=== PATIENT | female | born 1955 | race Caucasian/White ===

== ENCOUNTER → 2016-05-31 | Outpatient (CLI) | payer OTHER ==
--- NOTE | 2016-05-31 09:01 | MR ---
EXAMINATION TYPE: MR knee LT wo con DATE OF EXAM: 05/31/2016 8:09 AM COMPARISON: NONE HISTORY: Left knee pain, unilateral osteoarthritis, cystic lateral meniscus, and cystic medial menisc us all per order. Left knee pain and swelling outer aspect for 2 weeks after twisting injury per hemant ent. TECHNIQUE: Multiplanar, multisequence images of the knee is performed without IV contrast. FINDINGS: MEDIAL MENISCUS: There is medial extrusion of medial meniscus seen on coronal images. Increased signa l in fibers is seen best on coronal image 17, does not definitively extend to articular surface, find ing involves the body and posterior horn. LATERAL MENISCUS: Anterior and posterior horns are intact without tear. CRUCIATE LIGAMENTS: The anterior and posterior cruciate ligaments are intact and unremarkable. COLLATERAL LIGAMENTS: The medial collateral ligament and lateral collateral ligament complex are. Inc reased fluid signal surrounds medial collateral ligament on coronal image 17. EXTENSOR MECHANISM: Visualized quadriceps and patellar tendons are intact. EFFUSION: There is a small suprapatellar joint effusion. POPLITEAL CYST: There is a moderate size popliteal/banuelos cyst measuring 5.4 cm on long axis on sagitt al image 24. Some ill-defined fluid along superior aspect suggests leak. TRICOMPARTMENT SPACES: There is mild to moderate tricompartment joint space loss and mild to minimal spurring. CARTILAGE: There is chondromalacia patella with full-thickness cartilaginous loss along superior ríos llar pole seen best on sagittal image 15 and axial image 15 involving the medial facet. Beginning oss ific changes are felt present on sagittal image 15. Articular cartilage is fairly well maintained in the medial and lateral tibiofemoral compartments with minimal fissuring medially seen. BONE MARROW SIGNAL: No focal abnormal marrow signal is appreciated. OTHER: Increased fluid signal superficial infrapatellar level is noted most pronounced at level of ti bial tuberosity cannot exclude focal contusion at this level. IMPRESSION: 1. Intrasubstance tear body and posterior horn of medial meniscus. 2. Mild to moderate MCL sprain. 3. Background of mild to moderate degenerative change most pronounced patellofemoral compartment with areas of full-thickness chondromalacia patella present. 4. Moderate-sized leaking popliteal cyst. 5. Small suprapatellar joint effusion.
== END | disposition home or self-care (01) ==
LOC: RADMRIMAIN 07:36
PROVIDERS: ATTEND Orthopaedic Surgery
DX: S83.242A Other tear of medial meniscus, current injury, left knee, initial encounter (principal); S83.412A Sprain of medial collateral ligament of left knee, initial encounter; M22.42 Chondromalacia patellae, left knee; M71.22 Synovial cyst of popliteal space [Baker], left knee; M25.462 Effusion, left knee; M25.862 Other specified joint disorders, left knee

== ENCOUNTER → 2016-08-12 | Outpatient (CLI) | payer OTHER ==
[2016-08-12 07:41] LABS: ALT 26 U/L (9-52); AST 23 U/L (14-36); Alkaline Phosphatase 71 U/L (38-126); Anion Gap 10 mmol/L; Basophils # (A) 0.1 k/uL (0-0.2); Basophils % (A) 1 %; Blood Urea Nitrogen 14 mg/dL (7-17); CH 29.7; CHCM 32.2; Calcium 9.4 mg/dL (8.4-10.2); Carbon Dioxide 27 mmol/L (22-30); Chloride 106 mmol/L (98-107); Cholesterol 163 mg/dL (<200); Eosinophils # (A) 0.2 k/uL (0-0.7); Eosinophils % (A) 2 %; Glucose 88 mg/dL (74-99); HCT 43.5 % (34.0-46.0); HDL Cholesterol 106 mg/dL (40-60); HDW 2.28; HGB 14.1 gm/dL (11.4-16.0); Luc # (Auto) 0.24; Luc % (Auto) 3; Lymphocytes # (A) 3.1 k/uL (1.0-4.8); Lymphocytes % (A) 40 %; MCH 29.9 pg (25.0-35.0); MCHC 32.3 g/dL (31.0-37.0); MCV 92.7 fL (80.0-100.0); Mean Platelet Volume 8.3; Monocytes # (A) 0.5 k/uL (0-1.0); Monocytes % (A) 6 %; Neutrophils # (A) 3.7 k/uL (1.3-7.7); Neutrophils % (A) 48 %; Non-African American GFR(MDRD) >60 (>60 ml/min/1.73 sqM); Potassium 4.2 mmol/L (3.5-5.1); RDW 12.4 % (11.5-15.5); Sodium 143 mmol/L (137-145); Total Bilirubin 0.7 mg/dL (0.2-1.3); Total Protein 7.4 g/dL (6.3-8.2); Triglycerides 116 mg/dL (<150); WBC 7.7 k/uL (3.8-10.6); WBC (Perox) 7.88
== END | disposition home or self-care (01) ==
LOC: LABWHC1 06:53
PROVIDERS: ATTEND Physician Assistant
DX: R53.83 Other fatigue (principal)
CPT/HCPCS: 36415; 80053; 80061; 82652; 84439; 84443; 85025

== ENCOUNTER → 2016-08-28 | Outpatient (CLI) | payer OTHER ==
--- NOTE | 2016-08-28 11:04 | WWHP ---
DATE OF SERVICE: 08/28/2016. CHIEF COMPLAINT: Patient is here for her routine gynecologic exam and mammogram. HPI: This is a 60-year-old G4, P0, 2-2 with an LMP of 1983. She is status post [facility] for benign reasons. The patient is without gynecologic complaints. States it has been 5 to 10 years since her last pelvic exam, and about 2 to 3 years since her last mammogram. PAST MEDICAL HISTORY: Lupus, Raynaud's syndrome, elevated cholesterol and osteopenia and circulatory problems in the lower extremities. MEDICATIONS: 1. Simvastatin 20 mg daily. 2. Celebrex 200 mg b.i.d. 3. Plaquenil 1 b.i.d. 4. Vitamin D 5000 units weekly. ALLERGIES: PENICILLIN AND CODEINE. PAST SURGICAL HISTORY: Multiple D&Cs, appendectomy, cholecystectomy, rotator cuff surgery and colonoscopy in 2015 followed by an upper endoscopy in 2015, hiatal hernia repair, section, MARIA GUADALUPE in 1983. Past OB history: Vaginal delivery at 34 weeks and section at 24 weeks. She had placenta Previa and spontaneous rupture of membranes with his that required section. She had 2 spontaneous abortions. Past BIRD TRAPPER history: She had endometriosis which resulted in a hysterectomy in 1983. She used ERT for about 10 years until she was in her 40s. She has no history of STDs. Menarche was at age 9. SOCIAL HISTORY: She quit smoking in 2007. She has about 4 alcoholic drinks per week and denies drug use. She has been since 1991. 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 FAMILY HISTORY: Two aunts had breast cancer. Mother had CHF and renal failure. Mother also has diabetes. Her father and aunts also have diabetes. REVIEW OF SYSTEMS: Weight has been stable. She denies respiratory or cardiac problems. GI: She states she can have occasional bowel urgency and has to get to the bathroom right away. Bowel movements can also be loose at times. PHYSICAL EXAM: Blood pressure 144/70. Height 5 feet 3 inches. Weight 193 pounds. Temperature 98.4, pulse 70. This is a well-developed, well-nourished white female who is alert and oriented x3 in no acute distress. HEENT is within normal limits. NECK: Supple without mass or thyromegaly. CHEST AND LUNGS: Clear to auscultation. HEART: Regular rate and rhythm. Breasts are without mass or discharge. Axillary exam is negative for adenopathy. BACK: Negative for CVA tenderness. ABDOMEN: Soft and there is mild lower abdominal tenderness without rebound tenderness. There are no palpable masses. The patient states her low abdomen has been somewhat tender during the past 4 years. PELVIC EXAM: External genitalia reveals mild atrophy without lesions. Vagina reveals minimal atrophy without lesions. There is no evidence of prolapse. Bimanual exam is minimal generalized pelvic tenderness bilaterally. There are no palpable pelvic masses. Rectovaginal exam is negative for mass or tenderness and is negative for occult blood. EXTREMITIES: Nontender. IMPRESSION: 1. A 60-year-old menopausal female, status post total abdominal hysterectomy for benign reasons. 2. Mild low abdominal and generalized pelvic tenderness on exam. She states she does not really have pain throughout the day but has noticed tenderness for number of years. 3. History of osteopenia. PLAN: 1. Pap smears have been discontinued. 2. Self-breast examination was discussed. 3. Mammogram will be done today. 4. Pelvic ultrasound will be scheduled. 5. Osteoporosis prevention was discussed. She states she had her last bone density test done about 2 years ago. We will plan on repeating this next year. 6. We discussed her mildly elevated blood pressure. I have recommended that she do home blood pressure monitoring and to follow up with her primary care person for any blood pressure elevations. 7. She will return in one year.
--- NOTE | 2016-09-02 08:07 | MM ---
Reason for exam: screening (asymptomatic). Last mammogram was performed 6 years and 6 months ago. History: Patient is postmenopausal. Family history of breast cancer in paternal aunt and breast cancer in maternal aunt. Took hormonal contraceptives for 16 years beginning at age 10. Took estrogen for 8 years. Took progesterone for 8 years. Physical Findings: A clinical breast exam by your physician is recommended on an annual basis and results should be correlated with mammographic findings. MG 3D Screening Mammo W/Cad Bilateral CC and MLO view(s) were taken. Prior study comparison: February 16, 2010, bilateral diagnostic digital mammog. January 15, 2008, bilateral digital screening mammogram. There are scattered fibroglandular densities. No significant changes when compared with prior studies. ASSESSMENT: Negative, BI-RAD 1 RECOMMENDATION: Routine screening mammogram of both breasts in 1 year.
== END ==
LOC: WWCWWP 07:54
PROVIDERS: ATTEND Obstetrics & Gynecology
DX: Z12.31 Encounter for screening mammogram for malignant neoplasm of breast (principal)
CPT/HCPCS: 77063; G0202

== ENCOUNTER → 2016-09-12 | Outpatient (CLI) | payer OTHER ==
--- NOTE | 2016-09-12 09:00 | US ---
EXAMINATION TYPE: US pelvis complete transvag DATE OF EXAM: 09/12/2016 7:15 AM COMPARISON: CT 2009 CLINICAL HISTORY: 60-year-old female R68.89 Abnormal Pelvic Exam,R10. Pelvic tenderness. Partial hysterectomy 1983 TECHNIQUE: Possible transabdominal sonographic images of the pelvis were obtained. Transvaginal scan musa was medically necessary to better evaluate the anatomy. Date of LMP: partial hysterectomy 1983 Findings: Uterus: surgically absent. Neither ovary is visualized. Within the adnexa, peristalsing bowel an bowel gas is seen. No pelvic free fluid. IMPRESSION: Prominent bowel gas. The ovaries are obscured. No pelvic free fluid. Status post hysterectomy.
== END | disposition home or self-care (01) ==
LOC: RADUSWWP 06:48
PROVIDERS: ATTEND Obstetrics & Gynecology
DX: R10.2 Pelvic and perineal pain (principal); R68.89 Other general symptoms and signs; Z90.710 Acquired absence of both cervix and uterus
CPT/HCPCS: 76830; 76856

== ENCOUNTER → 2017-03-14 | Outpatient (CLI) | payer OTHER ==
[2017-03-14 07:35] LABS: Basophils # (A) 0.1 k/uL (0-0.2); Basophils % (A) 1 %; CHCM 33.1; Eosinophils # (A) 0.1 k/uL (0-0.7); Eosinophils % (A) 1 %; HCT 41.6 % (34.0-46.0); HDW 2.74; HGB 13.3 gm/dL (11.4-16.0); Luc % (Auto) 3; Lymphocytes # (A) 4.4 k/uL (1.0-4.8); Lymphocytes % (A) 43 %; MCH 29.1 pg (25.0-35.0); MCHC 31.9 g/dL (31.0-37.0); MCV 90.9 fL (80.0-100.0); Mean Platelet Volume 8.4; Monocytes # (A) 0.6 k/uL (0-1.0); Monocytes % (A) 6 %; Neutrophils # (A) 4.6 k/uL (1.3-7.7); Neutrophils % (A) 46 %; RBC 4.58 m/uL (3.80-5.40); WBC 10.1 k/uL (3.8-10.6); WBC (Perox) 10.34
[2017-03-14 07:56] LABS: ALT 35 U/L (9-52); AST 22 U/L (14-36); Alkaline Phosphatase 67 U/L (38-126); Anion Gap 8 mmol/L; Blood Urea Nitrogen 14 mg/dL (7-17); Calcium 9.6 mg/dL (8.4-10.2); Carbon Dioxide 29 mmol/L (22-30); Chloride 103 mmol/L (98-107); Cholesterol 139 mg/dL (<200); Glucose 92 mg/dL (74-99); HDL Cholesterol 91 mg/dL (40-60); Non-African American GFR(MDRD) >60 (>60 ml/min/1.73 sqM); Potassium 4.3 mmol/L (3.5-5.1); Sodium 140 mmol/L (137-145); Total Bilirubin 0.3 mg/dL (0.2-1.3); Total Protein 6.7 g/dL (6.3-8.2)
== END | disposition home or self-care (01) ==
LOC: LABWHC1 06:48
PROVIDERS: ATTEND Physician Assistant
DX: E66.9 Obesity, unspecified (principal); E78.3 Hyperchylomicronemia; M32.8 Other forms of systemic lupus erythematosus
CPT/HCPCS: 36415; 80053; 80061; 84443; 85025

== ENCOUNTER 2017-07-30 15:47 | Observation (INO) | payer OTHER ==
[2017-07-30] MEDS ORDERED: DIAZEPAM 5 MG/ML 2 ML INJ IVP STA (16:09)
[2017-07-30] MEDS ORDERED: MORPHINE SULFATE 4MG/4ML SYRG IVP STA (16:09)
[2017-07-30] MEDS ORDERED: RX INFO: IV CONTRAST WAS GIVEN 1 EACH MISC MISCELLANE PRN (16:09)
--- NOTE | 2017-07-30 16:24 | ED ---
General Adult HPI - General Chief complaint: Chest Pain Stated complaint: Chest & shoulder pain Time Seen by Provider: 07/30/17 15:54 Source: patient Mode of arrival: wheelchair Limitations: no limitations - History of Present Illness Initial comments: This is a 61-year-old female who presents emergency department for sudden onset of left-sided neck pain, shoulder and arm pain, and scapular pain. She states that she was out eating lunch when she suddenly developed the symptoms. She states that she does not have any chest pain however the pain is constant. It is unrelieved with any change in position. Nothing seems to make it worse however. 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 She states that she was at lunch when the pain started. She has had pulled muscles before and states that this feels different. She denies any visual changes however does admit to a mild headache. No abdominal pain or nausea. No syncope or lightheadedness. She was concerned that she was having a heart attacks so she presented to the emergency department. - Related Data Home Medications Medication Instructions Recorded Confirmed Celecoxib [CeleBREX] 200 mg PO BID 09/13/15 07/30/17 Ergocalciferol [Vitamin D2] 50,000 unit PO MORRISON 09/13/15 07/30/17 Hydroxychloroquine Sulfate 200 mg PO BID 09/13/15 07/30/17 [Plaquenil] Simvastatin [Zocor] 20 mg PO HS 09/13/15 07/30/17 Hydrochlorothiazide [Hydrodiuril] 25 mg PO DAILY 07/30/17 07/30/17 Allergies Allergy/AdvReac Type Severity Reaction Status Date / Time Penicillins Allergy Rash/Hives Verified 07/30/17 16:44 codeine AdvReac Nausea & Verified 07/30/17 16:44 Vomiting Influenza Virus Vaccines AdvReac Rash/Hives Verified 07/30/17 16:44 Review of Systems ROS Statement: Those systems with pertinent positive or pertinent negative responses have been documented in the HPI. ROS Other: All systems not noted in ROS Statement are negative. Past Medical History Past Medical History: COPD, GERD/Reflux, Hyperlipidemia, Hypertension, Osteoarthritis (OA) Additional Past Medical History / Comment(s): DYSPHAGIA WITH PAIN. , LUPUS, SJOGREN'S, FREQUENT DIARRHEA., BRUISES FROM IV ATTEMPTS 10/31/15- VERY DIFFICULT IV START. History of Any Multi-Drug Resistant Organisms: None Reported Past Surgical History: Appendectomy, Cholecystectomy, Hysterectomy, Orthopedic Surgery Additional Past Surgical History / Comment(s): shoulder surg., tanesha fundoplasty, EGD 10/31/15. Past Anesthesia/Blood Transfusion Reactions: No Reported Reaction Past Psychological History: No Psychological Hx Reported Smoking Status: Former smoker Past Alcohol Use History: Rare Past Drug Use History: None Reported - Past Family History Mother Family Medical History: Cancer General Exam - General Exam Comments Initial Comments: Constitutional: Awake alert Appears comfortable Head: Normocephalic atraumatic Eyes: no conjunctival injection No scleral icterus EOMI, pupils are 3 mm reactive bilaterally Neck: No JVD Supple, no midline tenderness however there is tenderness over the left trapezius Heart: Regular rate rhythm normal S1-S2 no murmurs Lungs: Clear to auscultation bilaterally No wheezing No rales Abdomen: Soft nondistended nontender Extremities: Non edematous DP pulses intact Radial pulses intact bilateral and feel the same Neuro: A&Ox3 No focal neurologic deficits Psych: Appropriate mood and affect Limitations: no limitations Course Vital Signs 07/30/17 07/30/17 07/30/17 15:50 16:38 17:12 Temperature 97.0 F L Pulse Rate 89 79 83 Respiratory 18 18 18 Rate Blood Pressure 151/80 156/74 162/72 O2 Sat by Pulse 99 99 98 Oximetry 07/30/17 07/30/17 17:38 17:48 Temperature Pulse Rate 88 87 Respiratory 18 18 Rate Blood Pressure 138/60 137/63 O2 Sat by Pulse 98 98 Oximetry EKG Findings - EKG Comments: EKG Findings:: EKG showing normal sinus rhythm with rate of 89. No abnormal ST segment changes or T-wave inversions. QTC is 479. Other intervals normal. No ectopy Medical Decision Making - Medical Decision Making Is a 61-year-old female presents emergency department mostly for left-sided neck , shoulder, and scapular pain. She did develop some chest pain while emergency department. She was given multiple pain medications including morphine and Valium without complete resolution of her left sided neck pain. The nitroglycerin that she was given did take away her chest discomfort however. EKG was normal. Troponin negative. CTA of the chest abdomen and pelvis did not show any evidence for aortic dissection. The patient does have some risk factors for CAD needs further workup by a coating technician. She will be started on heparin and admitted to the hospital. Rishabh with Dr. Nelson's group accepted the admission. - Lab Data Result diagrams: 07/30/17 14:30 07/30/17 14:30 Lab Results 07/30/17 07/30/17 07/30/17 Range/Units 14:30 14:30 14:30 WBC 10.0 (3.8-10.6) k/uL RBC 4.55 (3.80-5.40) m/uL Hgb 13.2 (11.4-16.0) gm/dL Hct 39.1 (34.0-46.0) % MCV 86.1 (80.0-100.0) fL MCH 28.9 (25.0-35.0) pg MCHC 33.6 (31.0-37.0) g/dL RDW 13.3 (11.5-15.5) % Plt Count 214 (150-450) k/uL Neutrophils % 53 % Lymphocytes % 35 % Monocytes % 7 % Eosinophils % 2 % Basophils % 1 % Neutrophils # 5.3 (1.3-7.7) k/uL Lymphocytes # 3.5 (1.0-4.8) k/uL Monocytes # 0.7 (0-1.0) k/uL Eosinophils # 0.2 (0-0.7) k/uL Basophils # 0.1 (0-0.2) k/uL PT (9.0-12.0) sec INR (<1.2) APTT (22.0-30.0) sec Sodium 140 (137-145) mmol/L Potassium 4.5 (3.5-5.1) mmol/L Chloride 101 (98-107) mmol/L Carbon Dioxide 28 (22-30) mmol/L Anion Gap 11 mmol/L BUN 18 H (7-17) mg/dL Creatinine 0.70 (0.52-1.04) mg/dL Est GFR (CKD-EPI)AfAm >90 (>60 ml/min/1.73 sqM) Est GFR (CKD-EPI)NonAf >90 (>60 ml/min/1.73 sqM) Glucose 88 (74-99) mg/dL Calcium 9.9 (8.4-10.2) mg/dL Total Bilirubin 0.7 (0.2-1.3) mg/dL AST 39 H (14-36) U/L ALT 23 (9-52) U/L Alkaline Phosphatase 68 (38-126) U/L CK-MB (CK-2) 0.6 (0.0-2.4) ng/mL Troponin I <0.012 (0.000-0.034) ng/mL Total Protein 7.3 (6.3-8.2) g/dL Albumin 4.4 (3.5-5.0) g/dL 07/30/17 Range/Units 14:30 WBC (3.8-10.6) k/uL RBC (3.80-5.40) m/uL Hgb (11.4-16.0) gm/dL Hct (34.0-46.0) % MCV (80.0-100.0) fL MCH (25.0-35.0) pg MCHC (31.0-37.0) g/dL RDW (11.5-15.5) % Plt Count (150-450) k/uL Neutrophils % % Lymphocytes % % Monocytes % % Eosinophils % % Basophils % % Neutrophils # (1.3-7.7) k/uL Lymphocytes # (1.0-4.8) k/uL Monocytes # (0-1.0) k/uL Eosinophils # (0-0.7) k/uL Basophils # (0-0.2) k/uL PT 10.0 (9.0-12.0) sec INR 1.0 (<1.2) APTT 22.9 (22.0-30.0) sec Sodium (137-145) mmol/L Potassium (3.5-5.1) mmol/L Chloride (98-107) mmol/L Carbon Dioxide (22-30) mmol/L Anion Gap mmol/L BUN (7-17) mg/dL Creatinine (0.52-1.04) mg/dL Est GFR (CKD-EPI)AfAm (>60 ml/min/1.73 sqM) Est GFR (CKD-EPI)NonAf (>60 ml/min/1.73 sqM) Glucose (74-99) mg/dL Calcium (8.4-10.2) mg/dL Total Bilirubin (0.2-1.3) mg/dL AST (14-36) U/L ALT (9-52) U/L Alkaline Phosphatase (38-126) U/L CK-MB (CK-2) (0.0-2.4) ng/mL Troponin I (0.000-0.034) ng/mL Total Protein (6.3-8.2) g/dL Albumin (3.5-5.0) g/dL Disposition Clinical Impression: Unstable angina Disposition: ADMITTED IP TO THIS [facility] Condition: Stable
[2017-07-30 17:13] LABS: Basophils # (A) 0.1 k/uL (0-0.2); Basophils % (A) 1 %; Eosinophils # (A) 0.2 k/uL (0-0.7); Eosinophils % (A) 2 %; HCT 39.1 % (34.0-46.0); HGB 13.2 gm/dL (11.4-16.0); Lymphocytes # (A) 3.5 k/uL (1.0-4.8); Lymphocytes % (A) 35 %; MCH 28.9 pg (25.0-35.0); MCHC 33.6 g/dL (31.0-37.0); MCV 86.1 fL (80.0-100.0); Mean Platelet Volume 8.9; Monocytes # (A) 0.7 k/uL (0-1.0); Monocytes % (A) 7 %; Neutrophils # (A) 5.3 k/uL (1.3-7.7); Neutrophils % (A) 53 %; Platelet Count 214 k/uL (150-450); RBC 4.55 m/uL (3.80-5.40); RDW 13.3 % (11.5-15.5)
[2017-07-30 17:21] LABS: Partial Thromboplastin Time 22.9 sec (22.0-30.0)
[2017-07-30 17:22] LABS: ALT 23 U/L (9-52); Albumin 4.4 g/dL (3.5-5.0); Alkaline Phosphatase 68 U/L (38-126); Anion Gap 11 mmol/L; Calcium 9.9 mg/dL (8.4-10.2); Carbon Dioxide 28 mmol/L (22-30); Chloride 101 mmol/L (98-107); Glucose 88 mg/dL (74-99); Sodium 140 mmol/L (137-145); Total Bilirubin 0.7 mg/dL (0.2-1.3); Total Protein 7.3 g/dL (6.3-8.2)
[2017-07-30 17:26] LABS: AST 39 U/L (14-36); Blood Urea Nitrogen 18 mg/dL (7-17); Potassium 4.5 mmol/L (3.5-5.1)
[2017-07-30] MEDS ORDERED: NITROGLYCERIN SL TABS 0.4 MG TAB SUBLINGUAL STA (17:34)
[2017-07-30 17:45] LABS: Creatine Kinase MB 0.6 ng/mL (0.0-2.4); Troponin I <0.012 ng/mL (0.000-0.034)
--- NOTE | 2017-07-30 17:47 | CT ---
EXAMINATION TYPE: CT angio thoracic/abd aorta without and with contrast and with 3-D Reconstruction r endering DATE OF EXAM: 07/30/2017 COMPARISON: CT 10/27/2009 HISTORY: Neck, Shoulder, Back Pain CT DLP: 1600.9 mGycm. Automated Exposure Control for Dose Reduction was Utilized. CONTRAST: CT scan of the thorax, abdomen and pelvis is performed with IV Contrast, patient injected w ith 100ml mL of Isovue 370. 3-D reconstructions. FINDINGS: AIRWAYS AND LUNGS: The airways and lungs are clear. Moderate emphysematous changes are noted diffusel y, greater on the right. PLEURAL SPACES: Negative. SOFT TISSUES: Precontrast imaging shows coronary calcifications and atherosclerotic nonaneurysmal ca lcifications within the thoracic aorta and upper abdominal aorta. No cardiomegaly. Pericardial space is negative. No greater than 1 cm hilar or mediastinal lymph nodes. Postcontrast imaging of the chest abdomen and pelvis is negative for acute aortic process. The pulmon reid arterial system is widely patent. Origins of the great vessels at the aortic arch are widely ríos nt. The aorto iliac system is widely patent. The mesenteric and renal arteries are widely patent. LIVER/GB: No significant abnormality is appreciated. PANCREAS: No significant abnormality is seen. SPLEEN: No significant abnormality is seen. ADRENALS: No significant abnormality is seen. KIDNEYS: No significant abnormality is seen. BOWEL: No significant abnormality is seen. GENITAL ORGANS: No gross abnormality seen. LYMPH NODES: No greater than 1cm abdominal or pelvic lymph nodes are appreciated. OSSEOUS STRUCTURES: No significant abnormality is seen. OTHER: No significant additional abnormality is seen. IMPRESSION: NO ACUTE PROCESS, CHEST ABDOMEN PELVIS CT/CTA WITHOUT AND WITH CONTRAST AND WITH 3-D RECONSTRUCTION R ENDERINGS.
[2017-07-30] MEDS ORDERED: ASPIRIN 81 MG PO STA (17:51)
[2017-07-30] MEDS ORDERED: KETOROLAC 30 MG/ML 1 ML VIAL IVP STA (17:51)
--- NOTE | 2017-07-30 17:55 | XR ---
EXAMINATION: XR chest 2V DATE AND TIME: 07/30/2017 5:31 PM ORDERING PROVIDER: Mian Lombardi DO CLINICAL INDICATION: Neck/Shoulder/Back Pain TECHNIQUE: AP and lateral COMPARISON: 10/27/2009 DESCRIPTION: The overlying soft tissues are prominent. There is a fine reticular pattern of increased attenuation throughout the lung symmetrically which mi ldly silhouettes of the pulmonary vasculature. The findings are consistent with mild interstitial pha se pulmonary edema versus chronic interstitial lung change. Pleural spaces are negative. Bones and soft tissues are negative for acute findings. IMPRESSION: Suspect mild interstitial phase pulmonary edema, as discussed.
[2017-07-30] MEDS ORDERED: NITROGLYCERIN SL TABS 0.4 MG TAB SUBLINGUAL PRN (18:20)
[2017-07-30] MEDS ORDERED: HEPARIN SODIUM,PORCINE 5,000 UNIT/ML 1 ML VIAL IV ONE (18:20)
[2017-07-30] MEDS ORDERED: HEPARIN SOD,PORK IN 0.45% NACL 25,000 UNIT in 0.45% NACL 1 500ML.BAG IV SCH (18:30)
[2017-07-30 19:57] VITALS: RESP 16
[2017-07-30] MEDS ORDERED: CYCLOBENZAPRINE 10 MG TAB PO PRN (20:04)
[2017-07-30] MEDS: HYDROXYCHLOROQUINE SULFATE 200 MG TAB PO SCH (20:35)
[2017-07-30] MEDS: MELOXICAM 7.5 MG TAB PO SCH (20:35)
[2017-07-30] MEDS ORDERED: ATORVASTATIN 10 MG TAB PO SCH (21:00)
[2017-07-30 21:17] LABS: Creatine Kinase 84 U/L (30-135)
[2017-07-30 21:30] LABS: Creatine Kinase MB 0.5 ng/mL (0.0-2.4); Troponin I <0.012 ng/mL (0.000-0.034)
[2017-07-30] MEDS ORDERED: KETOROLAC 30 MG/ML 1 ML VIAL IVP SCH (21:30)
[2017-07-30] MEDS ORDERED: traMADol 50 MG TAB PO SCH (22:00)
[2017-07-31] MEDS: traMADol 50 MG TAB PO PRN ×2 (01:46→06:58)
[2017-07-31] MEDS: KETOROLAC 30 MG/ML 1 ML VIAL IVP PRN ×2 (03:19→10:50)
[2017-07-31 03:53] LABS: Cholesterol 162 mg/dL (<200); HDL Cholesterol 105 mg/dL (40-60); LDL Cholesterol,Calculated 47 mg/dL (0-99); Triglycerides 49 mg/dL (<150)
[2017-07-31] MEDS ORDERED: HEPARIN SODIUM,PORCINE 5,000 UNIT/ML 1 ML VIAL IV PRN (03:59)
[2017-07-31 04:00] LABS: Creatine Kinase 79 U/L (30-135)
[2017-07-31 04:14] LABS: Creatine Kinase MB 0.3 ng/mL (0.0-2.4)
[2017-07-31 04:43] LABS: Troponin I <0.012 ng/mL (0.000-0.034)
[2017-07-31] MEDS ORDERED: HYDROCHLOROTHIAZIDE 25 MG TAB PO SCH (09:00)
[2017-07-31] MEDS ORDERED: ASPIRIN 325 MG TAB PO SCH (09:00)
[2017-07-31] MEDS ORDERED: DIAZEPAM 5 MG TAB PO STA (09:07)
[2017-07-31] MEDS: MELOXICAM 7.5 MG TAB PO SCH (09:18)
[2017-07-31] MEDS: HYDROXYCHLOROQUINE SULFATE 200 MG TAB PO SCH (09:19)
--- NOTE | 2017-07-31 09:24 | P.CRDCN ---
History of Present Illness History of present illness: Patient interviewed and examined. Please see full dictation. This is musculoskeletal pain reproducible with pressure and quite exquisite severe. Continue hydrochlorothiazide continue aspirin and simvastatin patient should go home today. Outpatient follow-up in 2 weeks Past Medical History Past Medical History: COPD, GERD/Reflux, Hyperlipidemia, Osteoarthritis (OA) Additional Past Medical History / Comment(s): DYSPHAGIA WITH PAIN. , LUPUS, SJOGREN'S, raynauldsFREQUENT DIARRHEA., BRUISES easilyFROM IV ATTEMPTS 10/31/15- VERY DIFFICULT IV START.bronchitis, past gerd none since hiatal hernia sx History of Any Multi-Drug Resistant Organisms: None Reported Past Surgical History: Appendectomy, Section, Cholecystectomy, Hysterectomy, Orthopedic Surgery, Tubal Ligation Additional Past Surgical History / Comment(s): t rotator cuff sx, tanesha fundoplasty, EGD 10/31/15.d&c's, colonoscopy/polyps bening, nasal polyp removed - benign, nodule on vocal cord. Past Anesthesia/Blood Transfusion Reactions: Postoperative Nausea & Vomiting ( PONV) Smoking Status: Former smoker - Past Family History Mother Family Medical History: Cancer Father Additional Family Medical History / Comment(s): - hx of parkinsons Medications and Allergies Home Medications Medication Instructions Recorded Confirmed Type Celecoxib [CeleBREX] 200 mg PO BID 09/13/15 07/30/17 History Ergocalciferol [Vitamin D2] 50,000 unit PO MORRISON 09/13/15 07/30/17 History Hydroxychloroquine Sulfate 200 mg PO BID 09/13/15 07/30/17 History [Plaquenil] Simvastatin [Zocor] 20 mg PO HS 09/13/15 07/30/17 History Cyclobenzaprine [Flexeril] 10 mg PO TID 07/30/17 07/30/17 History Hydrochlorothiazide [Hydrodiuril] 25 mg PO DAILY 07/30/17 07/30/17 History Allergies Allergy/AdvReac Type Severity Reaction Status Date / Time Penicillins Allergy Rash/Hives Verified 07/30/17 16:44 codeine AdvReac Nausea & Verified 07/30/17 16:44 Vomiting Influenza Virus Vaccines AdvReac Rash/Hives Verified 07/30/17 16:44 pneumococcal vaccine AdvReac Unknown Verified 07/30/17 19:15 Physical Exam Vitals: Vital Signs Temp Pulse Pulse Resp BP BP Pulse Ox 07/31/17 07:26 97.7 F 70 16 102/57 96 07/31/17 03:29 65 16 07/31/17 03:25 97.5 F L 65 16 127/63 97 07/31/17 00:00 63 16 07/30/17 23:33 97.9 F 73 16 128/60 98 07/30/17 20:00 16 07/30/17 19:56 97.6 F 82 16 142/68 99 07/30/17 19:00 98.3 F 84 14 175/74 99 07/30/17 17:48 87 18 137/63 98 07/30/17 17:38 88 18 138/60 98 07/30/17 17:12 83 18 162/72 98 07/30/17 16:38 79 18 156/74 99 07/30/17 15:50 97.0 F L 89 18 151/80 99 Intake and Output 07/30/17 07/31/17 07/31/17 22:59 06:59 14:59 Intake Total 190.077 Balance 190.077 Intake: Intake, IV Titration 190.077 Amount Heparin Sod,Pork in 0.45% 190.077 NaCl 25,000 unit In 0.45 % NaCl 1 500ml.bag @ 12 UNITS/KG/HR 17.96 mls/hr IV .Q24H [facility] Rx#: [id number] Other: # Voids 1 Weight 74.843 kg Results 07/30/17 14:30 07/30/17 14:30 Cardiac Enzymes 07/30/17 07/30/17 07/30/17 Range/Units 14:30 14:30 20:53 AST 39 H (14-36) U/L CK-MB (CK-2) 0.6 0.5 (0.0-2.4) ng/mL Troponin I <0.012 <0.012 (0.000-0.034) ng/mL 07/31/17 Range/Units 02:59 AST (14-36) U/L CK-MB (CK-2) 0.3 (0.0-2.4) ng/mL Troponin I <0.012 (0.000-0.034) ng/mL Coagulation 07/30/17 07/31/17 Range/Units 14:30 02:59 PT 10.0 (9.0-12.0) sec APTT 22.9 36.7 H (22.0-30.0) sec Lipids 07/31/17 Range/Units 02:59 Triglycerides 49 (<150) mg/dL Cholesterol 162 (<200) mg/dL HDL Cholesterol 105 H (40-60) mg/dL CBC 07/30/17 Range/Units 14:30 WBC 10.0 (3.8-10.6) k/uL RBC 4.55 (3.80-5.40) m/uL Hgb 13.2 (11.4-16.0) gm/dL Hct 39.1 (34.0-46.0) % Plt Count 214 (150-450) k/uL Comprehensive Metabolic Panel 07/30/17 Range/Units 14:30 Sodium 140 (137-145) mmol/L Potassium 4.5 (3.5-5.1) mmol/L Chloride 101 (98-107) mmol/L Carbon Dioxide 28 (22-30) mmol/L BUN 18 H (7-17) mg/dL Creatinine 0.70 (0.52-1.04) mg/dL Glucose 88 (74-99) mg/dL Calcium 9.9 (8.4-10.2) mg/dL AST 39 H (14-36) U/L ALT 23 (9-52) U/L Alkaline Phosphatase 68 (38-126) U/L Total Protein 7.3 (6.3-8.2) g/dL Albumin 4.4 (3.5-5.0) g/dL Current Medications Generic Name Dose Route Start Last Admin Trade Name Freq PRN Reason Stop Dose Admin Aspirin 325 mg 07/31/17 09:00 07/31/17 09:18 Aspirin PO 325 mg DAILY ISMAEL Administration Atorvastatin Calcium 10 mg 07/30/17 21:00 07/30/17 20:35 Lipitor PO 10 mg HS ISMAEL Administration Cyclobenzaprine HCl 10 mg 07/30/17 20:04 07/30/17 20:34 Flexeril PO 10 mg TID PRN Administration Muscle Spasm Ergocalciferol 50,000 unit 08/03/17 18:22 Vitamin D2 PO MORRISON ISMAEL Heparin Sodium (Porcine) 0 unit 07/31/17 03:59 07/31/17 05:40 Heparin IV 3,750 unit PER PROTOCOL PRN Administration Low PTT Protocol Hydrochlorothiazide 25 mg 07/31/17 09:00 Hydrodiuril PO DAILY [facility] Hydroxychloroquine Sulfate 200 mg 07/30/17 21:00 07/31/17 09:19 Plaquenil PO 200 mg BID ISMAEL Administration Ketorolac Tromethamine 15 mg 07/30/17 23:13 07/31/17 03:19 Toradol IVP 08/03/17 21:25 15 mg Q6HR PRN Administration For breakthrough pain. Meloxicam 7.5 mg 07/30/17 21:00 07/31/17 09:18 Mobic PO 7.5 mg BID [facility] Administration Miscellaneous Information 1 each 07/30/17 16:09 07/30/17 16:28 Rx Info: Iv Contrast Was Given MISCELLANE 08/01/17 16:09 1 each DAILY PRN Administration Per Protocol Nitroglycerin 0.4 mg 07/30/17 18:20 07/30/17 19:04 Nitrostat SUBLINGUAL 0.4 mg Q5M PRN Administration Chest Pain Tramadol HCl 50 mg 07/30/17 23:14 07/31/17 06:58 Ultram PO 50 mg QID PRN Administration Pain Intake and Output 07/30/17 07/31/17 07/31/17 22:59 06:59 14:59 Intake Total 190.077 Balance 190.077 Intake: Intake, IV Titration 190.077 Amount Heparin Sod,Pork in 0.45% 190.077 NaCl 25,000 unit In 0.45 % NaCl 1 500ml.bag @ 12 UNITS/KG/HR 17.96 mls/hr IV .Q24H [facility] Rx#: [id number] Other: # Voids 1 Weight 74.843 kg 07/30/17 14:30 07/30/17 14:30
--- NOTE | 2017-07-31 10:15 | CONS ---
CONSULTATION Luz Elena is a 61-year-old female who presented with severe pain in the nape of the neck that radiated down the left arm. This has been continuous since yesterday and has not let up at all. She continues to have the pain as I speak to her and she is in a lot of discomfort. The reason she came to the hospital was because once his pain started she also felt a squeezing vice-like sensation all around her chest and that is what scared her. When she came in, she underwent a CT of the chest. The CT of the chest showed coronary calcification and calcification of the aorta. The pulmonary artery system was normal. Aorta is normal. Renal and mesenteric arteries are normal. Since then, she has had 3 cardiac enzymes which have been normal and 2 serial EKGs that have been normal. PAST HISTORY: Past history of systemic lupus. She denies any diabetes, hypertension. Her HDL is high. She is on Zocor at home. REVIEW OF SYSTEMS: No fever, chills, or rigors. No cough or expectoration. No nausea, vomiting, or diarrhea. No hematuria or dysuria. No strokes or seizures. No skin lesions. She has musculoskeletal pain. ALLERGIES: Allergies to PENICILLIN, CODEINE, and INFLUENZA VIRUS VACCINE, and PNEUMOCOCCAL VACCINE. MEDICATIONS: Medications at home include Flexeril, hydrochlorothiazide, Celebrex, simvastatin and Plaquenil. PHYSICAL EXAMINATION: On examination, her blood pressure was normal 127/63 mmHg. She is afebrile 97.7 degrees Fahrenheit. Head and neck examination is normal. Heart sounds S1, S2 are normal. Lungs are clear on auscultation. Extremities are warm. No edema. She has exquisite tenderness in the nape of the neck over the supraspinatus muscle and she also is tender in the interscapular area. She has exquisite muscle tenderness and winces in pain. IMPRESSION: 1. Musculoskeletal pain, which is severe. 2. Normal cardiac enzymes x3 and 2 normal EKGs. 3. History of dyslipidemia, on Zocor. 4. Possible history of hypertension on HydroDIURIL. 5. History of systemic lupus, on Plaquenil. 6. Coronary calcifications as well as aortic calcifications on CT. No evidence for pulmonary embolism. LABS: Her labs were reviewed. Hemoglobin 13.2, white count is normal. Sodium 140, potassium 4.5, BUN 18, creatinine 0.7. On Zocor, triglycerides 49, total cholesterol 162, LDL 47, and HDL 105. SUGGEST: Management of musculoskeletal pain. The patient can be discharged home today and she will follow up in the office in about 2 weeks. Continue hydrochlorothiazide and simvastatin. This was discussed with the patient and the . MMODL / IJN: [id number] /
[2017-07-31 11:51] VITALS: BP 122/66; PULSE 71; TEMP 97.9
--- NOTE | 2017-07-31 15:07 | P.HPIM ---
History of Present Illness 61-year-old female who presents emergency department for sudden onset of left- sided neck pain, shoulder and arm pain, and scapular pain. She states that she was out eating lunch when she suddenly developed the symptoms. She states that she does not have any chest pain however the pain is constant. It is unrelieved with any change in position. Nothing seems to make it worse however. 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 She states that she was at lunch when the pain started. She has had pulled muscles before and states that this feels different. She denies any visual changes however does admit to a mild headache. No abdominal pain or nausea. No syncope or lightheadedness. She was concerned that she was having a heart attacks so she presented to the emergency department. Patient's pain is purely musculoskeletal which is a aggravated and frustrated by movement of the left shoulder patient may have issues with the supraspinatus. Patient was ruled out acute concurrent syndromes. Patient's as Celebrex dose will be increased and patient was cleared by cardiology and patient will be discharged to follow with the arthritic surgery as an outpatient for further workup. Review of Systems REVIEW OF SYSTEMS: CONSTITUTIONAL: No fever, no malaise, no fatigue. HEENT: No recent visual problems or hearing problems. Denied any sore throat. CARDIOVASCULAR: No chest pain, orthopnea, PND, no palpitations, no syncope. PULMONARY: No shortness of breath, no cough, no hemoptysis. GASTROINTESTINAL: No diarrhea, no nausea, no vomiting, no abdominal pain. Normoactive bowel sounds. NEUROLOGICAL: No headaches, no weakness, no numbness. HEMATOLOGICAL: Denies any bleeding or petechiae. GENITOURINARY: Denies any burning micturition, frequency, or urgency. MUSCULOSKELETAL/RHEUMATOLOGICAL: As mentioned in HPI ENDOCRINE: Denies any polyuria or polydipsia. The rest of the 14-point review of systems is negative. Past Medical History Past Medical History: COPD, GERD/Reflux, Hyperlipidemia, Osteoarthritis (OA) Additional Past Medical History / Comment(s): DYSPHAGIA WITH PAIN. , LUPUS, SJOGREN'S, raynauldsFREQUENT DIARRHEA., BRUISES easilyFROM IV ATTEMPTS 10/31/15- VERY DIFFICULT IV START.bronchitis, past gerd none since hiatal hernia sx History of Any Multi-Drug Resistant Organisms: None Reported Past Surgical History: Appendectomy, Section, Cholecystectomy, Hysterectomy, Orthopedic Surgery, Tubal Ligation Additional Past Surgical History / Comment(s): t rotator cuff sx, tanesha fundoplasty, EGD 10/31/15.d&c's, colonoscopy/polyps bening, nasal polyp removed - benign, nodule on vocal cord. Past Anesthesia/Blood Transfusion Reactions: Postoperative Nausea & Vomiting ( PONV) Smoking Status: Former smoker - Past Family History Mother Family Medical History: Cancer Father Additional Family Medical History / Comment(s): - hx of parkinsons Medications and Allergies Home Medications Medication Instructions Recorded Confirmed Type Ergocalciferol [Vitamin D2 50,000 unit PO MORRISON 09/13/15 07/30/17 History (DRISDOL)] Hydroxychloroquine Sulfate 200 mg PO BID 09/13/15 07/30/17 History [Plaquenil] Simvastatin [Zocor] 20 mg PO HS 09/13/15 07/30/17 History Cyclobenzaprine [Flexeril] 10 mg PO TID 07/30/17 07/30/17 History Hydrochlorothiazide [Hydrodiuril] 25 mg PO DAILY 07/30/17 07/30/17 History Celecoxib [CeleBREX] 400 mg PO BID #0 07/31/17 07/30/17 Rx Allergies Allergy/AdvReac Type Severity Reaction Status Date / Time Penicillins Allergy Rash/Hives Verified 07/30/17 16:44 codeine AdvReac Nausea & Verified 07/30/17 16:44 Vomiting Influenza Virus Vaccines AdvReac Rash/Hives Verified 07/30/17 16:44 pneumococcal vaccine AdvReac Unknown Verified 07/30/17 19:15 Physical Exam Vitals: Vital Signs Temp Pulse Pulse Resp BP BP Pulse Ox 07/31/17 12:00 71 16 07/31/17 11:49 97.9 F 71 16 122/66 95 07/31/17 08:00 70 16 07/31/17 07:26 97.7 F 70 16 102/57 96 07/31/17 03:29 65 16 07/31/17 03:25 97.5 F L 65 16 127/63 97 07/31/17 00:00 63 16 07/30/17 23:33 97.9 F 73 16 128/60 98 07/30/17 20:00 16 07/30/17 19:56 97.6 F 82 16 142/68 99 07/30/17 19:00 98.3 F 84 14 175/74 99 07/30/17 17:48 87 18 137/63 98 07/30/17 17:38 88 18 138/60 98 07/30/17 17:12 83 18 162/72 98 07/30/17 16:38 79 18 156/74 99 07/30/17 15:50 97.0 F L 89 18 151/80 99 Intake and Output 07/31/17 07/31/17 07/31/17 06:59 14:59 22:59 Intake Total 190.077 260 Balance 190.077 260 Intake: Intake, IV Titration 190.077 Amount Heparin Sod,Pork in 0.45% 190.077 NaCl 25,000 unit In 0.45 % NaCl 1 500ml.bag @ 12 UNITS/KG/HR 17.96 mls/hr IV .Q24H [facility] Rx#: [id number] Oral 260 Other: Voiding Method Toilet # Voids 1 2 PHYSICAL EXAMINATION: GENERAL: The patient is alert and oriented x3, not in any acute distress. Well developed, well nourished. HEENT: Pupils are round and equally reacting to light. EOMI. No scleral icterus. No conjunctival pallor. Normocephalic, atraumatic. No pharyngeal erythema. No thyromegaly. CARDIOVASCULAR: S1 and S2 present. No murmurs, rubs, or gallops. PULMONARY: Chest is clear to auscultation, no wheezing or crackles. ABDOMEN: Soft, nontender, nondistended, normoactive bowel sounds. No palpable organomegaly. MUSCULOSKELETAL: Patient has severe pain and tenderness with active and passive range of active movements of the left shoulder including abduction about 90 EXTREMITIES: No cyanosis, clubbing, or pedal edema. NEUROLOGICAL: Gross neurological examination did not reveal any focal deficits. SKIN: No rashes. Results CBC & Chem 7: 07/30/17 14:30 07/30/17 14:30 Labs: Abnormal Lab Results - Last 24 Hours (Table) 07/30/17 07/31/17 07/31/17 Range/Units 14:30 02:59 02:59 APTT 36.7 H (22.0-30.0) sec BUN 18 H (7-17) mg/dL AST 39 H (14-36) U/L HDL Cholesterol 105 H (40-60) mg/dL Thrombosis Risk Factor Assmnt - Choose All That Apply Any of the Below Risk Factors Present?: Yes Each Factor Represents 1 point: Abnormal pulmonary function (COPD), Age 41-60 years, Obesity (BMI >25) Other Risk Factors: No Other congenital or acquired thrombophilia - If yes, enter type in comment: No Thrombosis Risk Factor Assessment Total Risk Factor Score: 3 Thrombosis Risk Factor Assessment Level: Moderate Risk Assessment and Plan Plan: -Chest pain: Rule out acute medicine was feeling musculoskeletal related to shoulder injury FOR supraspinatus injury patient will need follow-up with the orthopedic surgery patient's Celebrex dose will be increased. -History of rheumatoid arthritis for which patient takes hydroxychloroquine which will be continued along with the Peñaloza 2 inhibitors -Hypertension patient will be continued on her hydrochlorothiazide - hyperlipidemia
--- NOTE | 2017-07-31 15:08 | P.DS ---
Providers Date of admission: 07/30/17 18:20 Attending physician: Shameka Nelson Consults: 07/30/17 18:20 Consult Physician Urgent Consulting Provider: [facility] Consult Reason/Comments: Chest Pain Do you want consulting provider notified?: Yes [facility] care physician[facility] Course: Please refer to my HPI Patient Condition at Discharge: Stable Plan - Discharge Summary Discharge Rx Participant: No New Discharge Prescriptions: Continue Simvastatin [Zocor] 20 mg PO HS Ergocalciferol [Vitamin D2 (DRISDOL)] 50,000 unit PO MORRISON Hydroxychloroquine Sulfate [Plaquenil] 200 mg PO BID Hydrochlorothiazide [Hydrodiuril] 25 mg PO DAILY Cyclobenzaprine [Flexeril] 10 mg PO TID Changed Celecoxib [CeleBREX] 400 mg PO BID #0 Discharge Medication List Ergocalciferol [Vitamin D2 (DRISDOL)] 50,000 unit PO MORRISON 09/13/15 [History] Hydroxychloroquine Sulfate [Plaquenil] 200 mg PO BID 09/13/15 [History] Simvastatin [Zocor] 20 mg PO HS 09/13/15 [History] Cyclobenzaprine [Flexeril] 10 mg PO TID 07/30/17 [History] Hydrochlorothiazide [Hydrodiuril] 25 mg PO DAILY 07/30/17 [History] Celecoxib [CeleBREX] 400 mg PO BID #0 07/31/17 [Rx] Follow up Appointment(s)/Referral(s): Keenan Arguello MD [STAFF PHYSICIAN] - 2 Weeks Merritt Paz MD [STAFF PHYSICIAN] - 3 Days Activity/Diet/Wound Care/Special Instructions: Patient may go home from a cardiac standpoint this morning and follow with the primary care physician. I will see her in about 1-2 weeks and arrange for a follow-up appointment myself Discharge Disposition: HOME SELF-CARE
[2017-07-31] MEDS ORDERED: KETOROLAC 30 MG/ML 1 ML VIAL IVP SCH (20:08)
[2017-08-03] MEDS ORDERED: ERGOCALCIFEROL 50,000 UNIT CAP PO SCH (18:22)
== END 2017-07-31 13:53 | disposition home or self-care (01) ==
LOC: EC 15:47 → 3OBS 18:20
PROVIDERS: ADMIT Hospitalist; ATTEND Hospitalist
DX: R07.89 Other chest pain (principal); M79.1 Myalgia; M54.2 Cervicalgia; M25.512 Pain in left shoulder; M79.602 Pain in left arm; R51 Headache; I10 Essential (primary) hypertension; E78.5 Hyperlipidemia, unspecified; M32.9 Systemic lupus erythematosus, unspecified; M06.9 Rheumatoid arthritis, unspecified; I73.00 Raynaud's syndrome without gangrene; I70.0 Atherosclerosis of aorta; I25.10 Atherosclerotic heart disease of native coronary artery without angina pectoris; J44.9 Chronic obstructive pulmonary disease, unspecified; K21.9 Gastro-esophageal reflux disease without esophagitis; M19.90 Unspecified osteoarthritis, unspecified site; M35.00 Sjogren syndrome, unspecified; Z79.899 Other long term (current) drug therapy; Z88.0 Allergy status to penicillin; Z88.5 Allergy status to narcotic agent; Z88.7 Allergy status to serum and vaccine; Z90.49 Acquired absence of other specified parts of digestive tract; Z87.891 Personal history of nicotine dependence; Z87.09 Personal history of other diseases of the respiratory system; Z80.9 Family history of malignant neoplasm, unspecified; Z82.0 Family history of epilepsy and other diseases of the nervous system; E66.9 Obesity, unspecified; Z68.29 Body mass index [BMI] 29.0-29.9, adult
CPT/HCPCS: 99285 ×2; 96375 ×4; 96376 ×4; 96365 ×2; 96366 ×2; 36415; 93005; 80061; 80053; 82550 ×2; 82553 ×2; 84484 ×2; 85025; 85610; 85730 ×2; 71046; 75635; 71275; G0378 ×2; J1644 ×3; J3360; J1885 ×2; Q9967; J2270

== ENCOUNTER 2018-04-28 10:31 | Emergency (ER) | payer OTHER ==
[2018-04-28 10:44] VITALS: RESP 18; TEMP 98.4
[2018-04-28] MEDS ORDERED: SODIUM CHLORIDE 0.9% 500 ML 500 ML IV STA (11:19)
--- NOTE | 2018-04-28 11:26 | ED ---
General Adult HPI - General Chief complaint: Recheck/Abnormal Lab/Rx Stated complaint: abn labs, shoulder pain Source: patient, RN notes reviewed, old records reviewed Mode of arrival: ambulatory Limitations: no limitations - History of Present Illness Initial comments: 62 year-old female patient past medical history including rheumatoid arthritis, lupus, Sjogren's, hypertension, elevated liver enzymes undetermined etiology presents to presents to ED for multiple complaints. Patient reports that she regularly follows up with straight edger and primary care physician. Patient reports that she was scheduled to follow up with her primary care physician yesterday however the office was not open. Patient reports that her primary complaint is bilateral shoulder pain without injury. Patient states that this started approximately 3 days ago. Patient states that she initially had pain in her right shoulder, progressively began to have pain in her left shoulder. Patient reports that she has pain with overhead movements. Patient reports that she has previously had joint pain secondary to her rheumatologic conditions in the past, however never her shoulders. Patient denies any chest pain and shortness of breath. Patient has a secondary complaint of urinary tract infection with multiple courses of antibiotics over the past month. Patient was recently on Levaquin approximately one week ago. Patient reports that she would like to be checked for a UTI. Patient denies other complaints. Systemic: Pt denies myalgia, fever/chills, rash. Pt denies weakness, night sweats, weight loss. Neuro: Pt denies headache, visual disturbances, syncope or pre-syncope. HEENT: Pt denies ocular discharge or irritation, otalgia, rhinorrhea, pharyngitis or notable lymphadenopathy. Cardiopulmonary: Pt denies chest pain, SOB, heart palpitations, dyspnea on exertion. Abdominal/GI: Pt denies abdominal pain, n/v/d. : Pt denies dysuria, burning w/ urination, frequency/urgency. Denies new onset urinary or bowel incontinence. MSK: Pt denies myalgia, loss of strength or function in extremities. Neuro: Pt denies new onset weakness, paresthesias. - Related Data Home Medications Medication Instructions Recorded Confirmed Ergocalciferol [Vitamin D2 50,000 unit PO MORRISON 09/13/15 04/28/18 (DRISDOL)] Hydroxychloroquine Sulfate 200 mg PO BID 09/13/15 04/28/18 [Plaquenil] Simvastatin [Zocor] 20 mg PO HS 09/13/15 04/28/18 Hydrochlorothiazide [Hydrodiuril] 25 mg PO DAILY 07/30/17 04/28/18 Levofloxacin [Levaquin] 750 mg PO DAILY 04/28/18 04/28/18 Metoprolol Tartrate [Lopressor] 25 mg PO BID 04/28/18 04/28/18 azaTHIOprine [Imuran] 50 mg PO DAILY 04/28/18 04/28/18 Allergies Allergy/AdvReac Type Severity Reaction Status Date / Time morphine Allergy Rash/Hives Verified 04/28/18 12:09 Penicillins Allergy Rash/Hives Verified 04/28/18 12:09 codeine AdvReac Nausea & Verified 04/28/18 12:09 Vomiting Influenza Virus Vaccines AdvReac Rash/Hives Verified 04/28/18 12:09 pneumococcal vaccine AdvReac Unknown Verified 04/28/18 12:09 Review of Systems ROS Statement: Those systems with pertinent positive or pertinent negative responses have been documented in the HPI. ROS Other: All systems not noted in ROS Statement are negative. Past Medical History Past Medical History: COPD, GERD/Reflux, Hyperlipidemia, Osteoarthritis (OA) Additional Past Medical History / Comment(s): DYSPHAGIA WITH PAIN. , LUPUS, SJOGREN'S, raynauldsFREQUENT DIARRHEA., BRUISES easilyFROM IV ATTEMPTS 10/31/15- VERY DIFFICULT IV START.bronchitis, past gerd none since hiatal hernia sx History of Any Multi-Drug Resistant Organisms: None Reported Past Surgical History: Appendectomy, Section, Cholecystectomy, Hysterectomy, Orthopedic Surgery, Tubal Ligation Additional Past Surgical History / Comment(s): t rotator cuff sx, tanesha fundoplasty, EGD 10/31/15.d&c's, colonoscopy/polyps bening, nasal polyp removed - benign, nodule on vocal cord. Past Anesthesia/Blood Transfusion Reactions: Postoperative Nausea & Vomiting ( PONV) Past Psychological History: No Psychological Hx Reported Smoking Status: Former smoker - Past Family History Mother Family Medical History: Cancer Father Additional Family Medical History / Comment(s): - hx of parkinsons General Exam - General Exam Comments Initial Comments: Constitutional: NAD, AOX3, Pt has pleasant affect. HEENT: NC/AT, trachea midline, neck supple, no lymphadenopathy. Posterior pharynx non erythematous, without exudates. External ears appear normal, without discharge. Mucous membranes moist. Eyes PERRLA, EOM intact. There is no scleral icterus. No pallor noted. Cardiopulmonary: RRR, no murmurs, rubs or gallops, no JVD noted. Lungs CTAB in anterior and posterior hyatt. No peripheral edema. Abdominal exam: Abdomen soft and non-distended. Abdomen non-tender to palpation in all 4 quadrants. Bowel sounds active in LLQ. No hepatosplenomegaly. No ecchymosis Neuro: CN II-XII grossly intact. No nuchal rigidity. MSK: Patient reports mild tenderness with overhead movements. Patient reports mild amount of tenderness bilaterally shoulders at AC joint. Empty can test positive bilaterally. Painful arc positive bilaterally. Sensation intact, 5/5 strength triceps and biceps. Radial pulse +2 bilaterally. No posterior calf tenderness bilaterally, homans sign negative bilaterally. Posterior tibialis and radial pulse +2 bilaterally. Sensation intact in upper and lower extremities. Full active ROM in upper and lower extremities, 5/5 strength. Limitations: no limitations Course Vital Signs 04/28/18 04/28/18 10:39 14:34 Temperature 98.4 F 98.4 F Pulse Rate 72 74 Respiratory 18 18 Rate Blood Pressure 121/78 133/67 O2 Sat by Pulse 99 98 Oximetry Medical Decision Making - Medical Decision Making 62-year-old female patient past medical history including rheumatoid arthritis, lupus, Sjogren's, hypertension, elevated liver enzymes undetermined etiology presents to presents to ED for multiple complaints. Patient reports that her primary complaint is bilateral shoulder pain without injury. Patient states that this started approximately 3 days ago. Patient states that she initially had pain in her right shoulder, progressively began to have pain in her left shoulder. Patient reports that she has pain with overhead movements. Patient denies any chest pain and shortness of breath. Patient has a secondary complaint of urinary tract infection with multiple courses of antibiotics over the past month. Patient was recently on Levaquin completed one week ago. Patient reports that she would like to be checked for a UTI. Patient denies other complaints. Physical exam displayed Patient reports mild tenderness with overhead movements. Patient reports mild amount of tenderness bilaterally shoulders at AC joint. Empty can test positive bilaterally. Painful arc positive bilaterally. Sensation intact, 5/5 strength triceps and biceps. Radial pulse +2 bilaterally. Laboratory [id number] man impressive CMP. CMP revealed elevated AST, ALT, alk phos. Patient has been followed by her primary care provider for these elevated enzymes. Patient additionally had negative hepatitis screening. pt does not have pain in right upper quadrant. UA was not impressive. Plain film of shoulder did not display acute process. Chest x-ray did not display any acute process. EKG not concerning for acute ischemia. Troponin negative. Patient bilateral shoulder pain is likely secondary to her rheumatologic conditions. Patient to follow-up with straight edger for continued evaluation. Patient to follow up with PCP tomorrow as scheduled for continued evaluation of her elevated liver enzymes. Patient to return to ED if new signs symptoms develop including abdominal pain, any other new symptoms, or if condition worsens in any way. Case discussed with Dr. Parra. - Lab Data Result diagrams: 04/28/18 11:40 04/28/18 11:40 Lab Results 04/28/18 04/28/18 04/28/18 Range/Units 11:40 11:40 11:40 WBC 9.4 (3.8-10.6) k/uL RBC 4.81 (3.80-5.40) m/uL Hgb 14.2 (11.4-16.0) gm/dL Hct 41.3 (34.0-46.0) % MCV 85.7 (80.0-100.0) fL MCH 29.5 (25.0-35.0) pg MCHC 34.4 (31.0-37.0) g/dL RDW 12.7 (11.5-15.5) % Plt Count 244 (150-450) k/uL Neutrophils % 67 % Lymphocytes % 23 % Monocytes % 6 % Eosinophils % 3 % Basophils % 1 % Neutrophils # 6.3 (1.3-7.7) k/uL Lymphocytes # 2.1 (1.0-4.8) k/uL Monocytes # 0.5 (0-1.0) k/uL Eosinophils # 0.3 (0-0.7) k/uL Basophils # 0.1 (0-0.2) k/uL Sodium 136 L (137-145) mmol/L Potassium 3.8 (3.5-5.1) mmol/L Chloride 95 L (98-107) mmol/L Carbon Dioxide 32 H (22-30) mmol/L Anion Gap 9 mmol/L BUN 10 (7-17) mg/dL Creatinine 0.71 (0.52-1.04) mg/dL Est GFR (CKD-EPI)AfAm >90 (>60 ml/min/1.73 sqM) Est GFR (CKD-EPI)NonAf >90 (>60 ml/min/1.73 sqM) Glucose 106 H (74-99) mg/dL Calcium 9.7 (8.4-10.2) mg/dL Total Bilirubin 0.6 (0.2-1.3) mg/dL AST 200 H (14-36) U/L ALT 197 H (9-52) U/L Alkaline Phosphatase 159 H (38-126) U/L Troponin I (0.000-0.034) ng/mL Total Protein 7.0 (6.3-8.2) g/dL Albumin 4.2 (3.5-5.0) g/dL Urine Color Yellow Urine Appearance Clear (Clear) Urine pH 7.5 (5.0-8.0) Ur Specific [place] 1.011 (1.001-1.035) Urine Protein Trace H (Negative) Urine Glucose (UA) Negative (Negative) Urine Ketones Negative (Negative) Urine Blood Negative (Negative) Urine Nitrite Negative (Negative) Urine Bilirubin Negative (Negative) Urine Urobilinogen <2.0 (<2.0) mg/dL Ur Leukocyte Esterase Negative (Negative) 04/28/18 Range/Units 11:40 WBC (3.8-10.6) k/uL RBC (3.80-5.40) m/uL Hgb (11.4-16.0) gm/dL Hct (34.0-46.0) % MCV (80.0-100.0) fL MCH (25.0-35.0) pg MCHC (31.0-37.0) g/dL RDW (11.5-15.5) % Plt Count (150-450) k/uL Neutrophils % % Lymphocytes % % Monocytes % % Eosinophils % % Basophils % % Neutrophils # (1.3-7.7) k/uL Lymphocytes # (1.0-4.8) k/uL Monocytes # (0-1.0) k/uL Eosinophils # (0-0.7) k/uL Basophils # (0-0.2) k/uL Sodium (137-145) mmol/L Potassium (3.5-5.1) mmol/L Chloride (98-107) mmol/L Carbon Dioxide (22-30) mmol/L Anion Gap mmol/L BUN (7-17) mg/dL Creatinine (0.52-1.04) mg/dL Est GFR (CKD-EPI)AfAm (>60 ml/min/1.73 sqM) Est GFR (CKD-EPI)NonAf (>60 ml/min/1.73 sqM) Glucose (74-99) mg/dL Calcium (8.4-10.2) mg/dL Total Bilirubin (0.2-1.3) mg/dL AST (14-36) U/L ALT (9-52) U/L Alkaline Phosphatase (38-126) U/L Troponin I <0.012 (0.000-0.034) ng/mL Total Protein (6.3-8.2) g/dL Albumin (3.5-5.0) g/dL Urine Color Urine Appearance (Clear) Urine pH (5.0-8.0) Ur Specific [place] (1.001-1.035) Urine Protein (Negative) Urine Glucose (UA) (Negative) Urine Ketones (Negative) Urine Blood (Negative) Urine Nitrite (Negative) Urine Bilirubin (Negative) Urine Urobilinogen (<2.0) mg/dL Ur Leukocyte Esterase (Negative) - EKG Data -: EKG Interpreted by Me (and dr parra) EKG Comments: Ventricular rate 67, CO interval 132, QRS 94, QTC CBC force 46, 471. Sinus rhythm. Inferior infarct age indeterminate. No concerns for acute ischemia. Disposition Clinical Impression: Elevated liver enzymes, Arthralgia Disposition: HOME SELF-CARE Condition: Good Instructions: Arthralgia (ED), Shoulder Pain (ED) Additional Instructions: Patient to adhere to previously discussed treatment plan and will take medication(s) as directed. Patient to follow up with PCP in 1-2 days. Patient to return to ED if symptoms do not improve. Is patient prescribed a controlled substance at d/c from ED?: No Referrals: Basil Agarwal DO [Primary Care Provider] - 1-2 days Time of Disposition: 15:12
[2018-04-28 12:06] LABS: Basophils # (A) 0.1 k/uL (0-0.2); Basophils % (A) 1 %; Eosinophils # (A) 0.3 k/uL (0-0.7); Eosinophils % (A) 3 %; HCT 41.3 % (34.0-46.0); HGB 14.2 gm/dL (11.4-16.0); Lymphocytes # (A) 2.1 k/uL (1.0-4.8); Lymphocytes % (A) 23 %; MCH 29.5 pg (25.0-35.0); MCHC 34.4 g/dL (31.0-37.0); MCV 85.7 fL (80.0-100.0); Mean Platelet Volume 8.2; Monocytes # (A) 0.5 k/uL (0-1.0); Monocytes % (A) 6 %; Neutrophils # (A) 6.3 k/uL (1.3-7.7); Neutrophils % (A) 67 %; Platelet Count 244 k/uL (150-450); RBC 4.81 m/uL (3.80-5.40); RDW 12.7 % (11.5-15.5); WBC 9.4 k/uL (3.8-10.6)
[2018-04-28 12:07] LABS: Appearance,Urine Clear (Clear); Bilirubin,Urine Negative (Negative); Blood,Urine Negative (Negative); Color,Urine Yellow; Glucose,Urine (UA) Negative (Negative); Ketones,Urine Negative (Negative); Leukocyte Esterase,Urine Negative (Negative); Nitrite,Urine Negative (Negative); PH, Urine 7.5 (5.0-8.0); Protein,Urine Trace (Negative); Specific Gravity,Urine 1.011 (1.001-1.035); Urobilinogen,Urine <2.0 mg/dL (<2.0)
[2018-04-28 12:18] LABS: ALT 197 U/L (9-52); AST 200 U/L (14-36); Albumin 4.2 g/dL (3.5-5.0); Alkaline Phosphatase 159 U/L (38-126); Anion Gap 9 mmol/L; Blood Urea Nitrogen 10 mg/dL (7-17); Calcium 9.7 mg/dL (8.4-10.2); Carbon Dioxide 32 mmol/L (22-30); Chloride 95 mmol/L (98-107); Glucose 106 mg/dL (74-99); Potassium 3.8 mmol/L (3.5-5.1); Sodium 136 mmol/L (137-145); Total Bilirubin 0.6 mg/dL (0.2-1.3)
--- NOTE | 2018-04-28 12:38 | XR ---
EXAMINATION TYPE: XR chest 2V DATE OF EXAM: 04/28/2018 COMPARISON: 07/30/2017 HISTORY: Shortness of breath TECHNIQUE: Frontal and lateral views of the chest are obtained. FINDINGS: Scattered senescent parenchymal changes noted. Hyperinflation compatible with COPD. No evidence for infiltrate. No evidence for atelectasis. Heart size is stable. Mediastinal structures are stable and grossly unremarkable. No evidence for hilar prominence. Degenerative changes dorsal spine. IMPRESSION: 1. No evidence for acute pulmonary disease.
--- NOTE | 2018-04-28 12:38 | XR ---
EXAMINATION TYPE: XR shoulder complete BILAT DATE OF EXAM: 04/28/2018 CLINICAL HISTORY: pain TECHNIQUE: Three views of the right shoulder are obtained. COMPARISON: None FINDINGS: There is no acute fracture/dislocation evident. The acromioclavicular and glenohumeral andreina int spaces appear within normal limits. The visualized ribs are intact and unremarkable. IMPRESSION: 1. There is no acute fracture or dislocation. ICD 10 NO FRACTURE, INITIAL EVALUATION EXAMINATION TYPE: XR shoulder complete BILAT DATE OF EXAM: 04/28/2018 CLINICAL HISTORY: pain COMPARISON: NONE TECHNIQUE: Three views of the left shoulder are obtained. FINDINGS: There is no acute fracture/dislocation evident. The acromioclavicular and glenohumeral andreina int spaces appear within normal limits. The visualized ribs are intact and unremarkable.
[2018-04-28 14:35] VITALS: BP 133/67; PULSE 74
[2018-04-28] MEDS ORDERED: KETOROLAC 30 MG/ML 1 ML VIAL IVP STA (15:09)
== END 2018-04-28 15:31 | disposition home or self-care (01) ==
LOC: EC 10:31
DX: M25.512 Pain in left shoulder (principal); M25.511 Pain in right shoulder; R74.8 Abnormal levels of other serum enzymes; N39.0 Urinary tract infection, site not specified; I10 Essential (primary) hypertension; E78.5 Hyperlipidemia, unspecified; M19.90 Unspecified osteoarthritis, unspecified site; M06.9 Rheumatoid arthritis, unspecified; Z98.890 Other specified postprocedural states; Z87.891 Personal history of nicotine dependence; Z79.899 Other long term (current) drug therapy; Z88.5 Allergy status to narcotic agent; Z88.0 Allergy status to penicillin; Z88.7 Allergy status to serum and vaccine; Z53.8 Procedure and treatment not carried out for other reasons
CPT/HCPCS: 36415; 71046; 80053; 81003; 84484; 85025; 93005; 96360; 99284

== ENCOUNTER → 2018-05-12 | Outpatient (CLI) | payer OTHER ==
--- NOTE | 2018-05-12 11:21 | US ---
EXAMINATION TYPE: US abdomen complete DATE OF EXAM: 05/12/2018 COMPARISON: CT 07/30/2017 CLINICAL HISTORY: M32.9 Systemic lupus erythematosus, unspecified. Difficult and limited exam due to overlying bowel gas and patient body habitus EXAM MEASUREMENTS: Liver Length: 15.0 cm Gallbladder Wall: Surgically absent CBD: 0.5 cm Spleen: 8.9 cm Right Kidney: 9.3 x 5.2 x 4.3 cm Left Kidney: 10.9 x 5.3 x 4.9 cm Pancreas: Obscured by bowel gas Liver: Limited evaluation due to overlying bowel gas. Heterogeneous Gallbladder: Surgically absent Evidence for sonographic Barrios's sign: No CBD: wnl as visualized Spleen: wnl Right Kidney: No hydronephrosis or masses seen Left Kidney: No hydronephrosis or masses seen Upper IVC: wnl Abd Aorta: Atherosclerotic changes visualized Exam noted suboptimal due to overlying bowel gas and patient's large body habitus per technologist. V isualized pancreas shows no worrisome mass or ductal dilatation, portions are suboptimally evaluated on images saved. No interval change is seen in visualized abdominal aorta. IVC is seen near hepatic d ome. Visualized liver is slightly heterogeneous in appearance without worrisome mass or ductal dilatation. Gallbladder is surgically absent. No suspicious biliary dilatation is seen. Both kidneys are normal in size without hydronephrosis or concerning mass on images saved. Spleen wilman sures normal in size without focal intrasplenic mass. IMPRESSION: Suboptimal study without new or acute finding identified when comparing with [address] CT.
== END | disposition home or self-care (01) ==
LOC: RADUSWWP 06:48
PROVIDERS: ATTEND Family Medicine
DX: M32.9 Systemic lupus erythematosus, unspecified (principal)
CPT/HCPCS: 76700

== ENCOUNTER → 2018-05-12 | Outpatient (CLI) | payer OTHER ==
[2018-05-12 07:19] LABS: ALT 32 U/L (9-52); AST 21 U/L (14-36)
== END | disposition home or self-care (01) ==
LOC: LABWHC1 06:39
PROVIDERS: ATTEND Internal Medicine Rheumatology
DX: R94.5 Abnormal results of liver function studies (principal)
CPT/HCPCS: 36415; 84450; 84460

== ENCOUNTER → 2018-08-31 | Outpatient (CLI) | payer OTHER ==
--- NOTE | 2018-08-31 09:17 | MR ---
EXAMINATION TYPE: MR shoulder RT wo con DATE OF EXAM: 08/31/2018 COMPARISON: Bilateral shoulder x-ray April 28, 2018. HISTORY: Right shoulder pain, primary osteoarthritis, synovitis and tenosynovitis, adhesive capsuliti s, impingement all pleural border. Pain since April 24 with difficulty raising overhead per patien t. TECHNIQUE: Multiplanar, multisequence imaging of the right shoulder is performed without contrast. FINDINGS: Rotator Cuff: There is marked increased signal in the distal supraspinatus and infraspinatus tendons without discrete or full-thickness retracted tear. Subscapularis tendon is felt intact. Rotator cuff muscle bulk is preserved. Acromioclavicular Joint: Mild to moderate narrowing with moderate capsular hypertrophy. No significan t spurring is present. Distal acromion morphology is unremarkable. Glenohumeral Joint: Hpyz-fi-eganhwjo narrowing with moderate glenohumeral joint effusion. No signific ant spurring. Labrum: The inferior labrum is grossly intact. Biceps Tendon: The long head of biceps is in normal location within bicipital groove. Bone marrow signal: No focal abnormal marrow signal is appreciated. Other: No suspicious thickening of the inferior glenohumeral ligament. Rotator cuff interval is felt within normal limits. IMPRESSION: Mild to moderate degenerative changes as detailed above. Tendinosis of the distal suprasp inatus and infraspinatus tendons is present.
== END | disposition home or self-care (01) ==
LOC: RADMRIMAIN 08:17
PROVIDERS: ATTEND Orthopaedic Surgery
DX: M19.011 Primary osteoarthritis, right shoulder (principal); M65.9 Synovitis and tenosynovitis, unspecified

== ENCOUNTER → 2019-01-14 | Outpatient (CLI) | payer OTHER ==
[2019-01-14 12:35] LABS: Appearance,Urine Clear (Clear); Basophils # (A) 0.1 k/uL (0-0.2); Basophils % (A) 1 %; Bilirubin,Urine Negative (Negative); Blood,Urine Negative (Negative); Color,Urine Light Yellow; Eosinophils # (A) 0.2 k/uL (0-0.7); Eosinophils % (A) 2 %; Glucose,Urine (UA) Negative (Negative); HCT 43.6 % (34.0-46.0); HGB 14.5 gm/dL (11.4-16.0); Ketones,Urine Negative (Negative); Leukocyte Esterase,Urine Negative (Negative); Lymphocytes # (A) 2.9 k/uL (1.0-4.8); Lymphocytes % (A) 36 %; MCH 29.7 pg (25.0-35.0); MCHC 33.3 g/dL (31.0-37.0); MCV 89.5 fL (80.0-100.0); Mean Platelet Volume 8.4; Monocytes # (A) 0.6 k/uL (0-1.0); Monocytes % (A) 7 %; Neutrophils # (A) 4.1 k/uL (1.3-7.7); Neutrophils % (A) 51 %; Nitrite,Urine Negative (Negative); PH, Urine 5.5 (5.0-8.0); Platelet Count 169 k/uL (150-450); Protein,Urine Negative (Negative); RBC 4.87 m/uL (3.80-5.40); RDW 12.4 % (11.5-15.5); Specific Gravity,Urine 1.004 (1.001-1.035); Urobilinogen,Urine <2.0 mg/dL (<2.0); WBC 8.1 k/uL (3.8-10.6)
[2019-01-14 19:05] LABS: African American GFR (CKD) 108.4 (60.0-200.0)
== END | disposition home or self-care (01) ==
LOC: LABWHC1 10:59
PROVIDERS: ATTEND Internal Medicine Rheumatology
DX: M32.9 Systemic lupus erythematosus, unspecified (principal)
CPT/HCPCS: 36415; 81003; 82565; 84450; 84460; 84520; 85025

== ENCOUNTER → 2019-02-19 | Outpatient (CLI) | payer OTHER ==
--- NOTE | 2019-02-19 13:17 | XR ---
EXAMINATION TYPE: XR abdomen 2V DATE OF EXAM: 02/19/2019 HISTORY: Pain. Technique: 3 views of the abdomen are submitted. Comparison: None. Findings: There is no convincing evidence of pneumoperitoneum. Mild dilatation of small bowel measuring approximately 2 cm with the wall thickening suggested. Findi ngs are nonspecific. No sizable air-fluid levels are seen. No mass effects are noted. No renal calcifications are identified. IMPRESSION: 1. Nonspecific bowel gas pattern
--- NOTE | 2019-02-19 13:19 | XR ---
EXAMINATION TYPE: XR ribs RT w pa chest xray DATE OF EXAM: 02/19/2019 COMPARISON: NONE HISTORY: Pain TECHNIQUE: Single view of the chest 5 views of the ribs are submitted. FINDINGS: The lungs are clear. No Evidence for pneumothorax. No evidence for focal contusion. Medi astinal structures are midline. Evaluation of the ribs fails to demonstrate evidence for displaced r ib fracture or secondary sign of rib fracture. IMPRESSION: Negative study
== END ==
LOC: RADXRWHC 12:46
PROVIDERS: ATTEND Physician Assistant Medical
DX: R07.82 Intercostal pain (principal); R10.10 Upper abdominal pain, unspecified; W19.XXXD Unspecified fall, subsequent encounter
CPT/HCPCS: 74019

== ENCOUNTER → 2019-11-16 | Outpatient (CLI) | payer OTHER ==
[2019-11-16 16:35] LABS: Thyroid Peroxidase Antibodies 49.9 U/mL (0.0-60.0)
[2019-11-16 17:36] LABS: Hepatitis A Antibody IgM Non-Reactive (Non-Reactive); Hepatitis B Core IgM Non-Reactive (Non-Reactive); Hepatitis B Surface Antigen Non-Reactive (Non-Reactive); Hepatitis C IgG Antibody Non-Reactive (Non-Reactive)
[2019-11-18 11:15] LABS: Anti-Endomysial IgA Antibody <1:10 Titer (<1:10)
== END | disposition home or self-care (01) ==
LOC: LABWHC1 09:59
PROVIDERS: ATTEND Nurse Practitioner Family
DX: M19.90 Unspecified osteoarthritis, unspecified site (principal); R53.83 Other fatigue; M32.10 Systemic lupus erythematosus, organ or system involvement unspecified
CPT/HCPCS: 36415; 80074; 82550; 83516; 83874; 86255; 86376; 86480; 86800

== ENCOUNTER → 2020-04-11 | Outpatient (CLI) | payer OTHER ==
--- NOTE | 2020-04-11 10:01 | MR ---
EXAMINATION TYPE: MR ankle LT wo con DATE OF EXAM: 04/11/2020 COMPARISON: None. HISTORY: Lt ankle pain, swelling, possible partial Achilles tendon rupture. Standard multiplanar, multisequence MRI departmental protocol Multiplanar, multisequence images of the left ankle were acquired. Diffusion weighted imaging was per formed. FINDINGS: There is focal thickening up to 1.2 cm AP diameter In the distal Achilles tendon over rough ly 5 cm segment approximately 2.5 cm proximal to the calcaneal insertion with areas of cortical incre ased signal. Plantar fascia is intact. Moderate size inferior calcaneal spur noted sagittal image 10. Some fluid surrounds the peroneal tendons along posterior lateral aspect of the ankle. PB tendon show s subtle focal thickening and increased central signal at the base of fifth metatarsal insertion. Sim ilar findings seen in the PL tendon near insertion base of first metatarsal coronal image 1 series 70 1. Flexor tendons lie posterior medial aspect of the ankle show surrounding signal. Small horizontal tea r in the FHL noted axial image 10 series 401. No full-thickness tendon retracted tears. Extensor tendons anteriorly are intact. The anterior tibiofibular and anterior talofibular ligaments are intact. The medial deltoid ligament is intact. Small tibiotalar joint effusion extending anteriorly and posteriorly. Normal sinus tarsi fat. There is 2 -3 mm focus of osseous contusion at the talocalcaneal joint sagittal image 9. Mild edemato us change at base of fourth metatarsal articulation with the cuboid on axial image 7 series 401 for r eference. Mild to moderate narrowing throughout the mid foot structures including Lisfranc joints with mild spu rring. Mild intramuscular edema along the plantar surface deep to the plantar fascia. Ankle mortise s ymmetry is preserved. IMPRESSION: 1. Confirmation of partial tear of the distal Achilles tendon. 2. Mild to moderate midfoot and hindfoot arthropathy as detailed above. 3. Multilevel flexor tenosynovitis with areas of tendinosis/possible chronic partial tears. No full-t hickness retracted tears.
== END | disposition home or self-care (01) ==
LOC: RADMRIMAIN 08:11
PROVIDERS: ATTEND Orthopaedic Surgery
DX: S86.012A Strain of left Achilles tendon, initial encounter (principal); M12.872 Other specific arthropathies, not elsewhere classified, left ankle and foot; M65.9 Synovitis and tenosynovitis, unspecified

== ENCOUNTER 2020-07-30 07:53 | Emergency (ER) | payer OTHER ==
[2020-07-30 07:59] VITALS: RESP 20
--- NOTE | 2020-07-30 08:24 | ED ---
General Adult HPI - General Chief complaint: Shortness of Breath Stated complaint: Cough, Fever, Headache Time Seen by Provider: 07/30/20 08:03 Source: patient Mode of arrival: ambulatory Limitations: no limitations - History of Present Illness Initial comments: Dictation was produced using [employer] dictation software. please excuse any grammatical, word or spelling errors. This patient was cared for during a federal and state declared state of e mergency secondary to Covid 19 Chief Complaint: 64-year-old field past medical history of lupus, COPD she presents to the emergency department for concerns of bronchitis History of Present Illness: 64-year-old female she has been having symptoms for approximately 7 days. Patient states she is in the emergency department today because her symptoms are not improving per she is concerned she is having bronchitis. She complains of fever, shortness of breath. She denies being exposed to anybody with obvious cold symptoms. Patient did not receive vaccines for Covid because rheumatologists recommended that she not get it because a previous history of severe reactions to previous vaccines. The ROS documented in this emergency department record has been reviewed and confirmed by me. Those systems with pertinent positive or negative responses have been documented in the HPI. All other systems are other negative and/or noncontributory. PHYSICAL EXAM: General Impression: Alert and oriented x3, not in acute distress HEENT: Normocephalic atraumatic, extra-ocular movements intact, pupils equal and reactive to light bilaterally, mucous membranes moist. Cardiovascular: Heart regular rate and rhythm Chest: Able to complete full sentences, no retractions, no tachypnea, lungs c lear to auscultation bilaterally Abdomen: abdomen soft, non-tender, non-distended, no organomegaly Musculoskeletal: Pulses present and equal in all extremities, no peripheral edema Motor: no focal deficits noted Neurological: CN II-XII grossly intact, no focal motor or sensory deficits noted Skin: Intact with no visualized rashes Psych: Normal affect and mood ED course: 64-year-old female presents with reported symptoms of bronchitis signs upon arrival shows low-grade temperature of 99.4, 93% on room air. EKG interpretation: Ventricular rate 80, normal sinus rhythm,. Interval 112, QRS 80, QTC 452. No [place] prolongation, no QTC prolongation, no ST or T-wave changes noted. EKG compared to 04/28/2018 showing no changes. Overall, this EKG is unremarkable Laboratory evaluation obtained. CBC unremarkable. Metabolic panel shows mild hyponatremia 132. Coronavirus is positive. Chest x-ray is nonacute. She reevaluated at around 9:08 AM found to be well-appearing no signs of respiratory distress or hypoxia. Discussed monoclonal antibody fusion patient. She does consent to receiving the infusion. Patient received infusion monitored in the emergency department for 1 hour post infusion with no acute events. Patient be discharged. - Related Data Home Medications Medication Instructions Recorded Confirmed Ergocalciferol [Vitamin D2 50,000 unit PO MORRISON 09/13/15 07/30/20 (DRISDOL)] Hydroxychloroquine Sulfate 200 mg PO BID 09/13/15 07/30/20 [Plaquenil] Simvastatin [Zocor] 20 mg PO HS 09/13/15 07/30/20 hydroCHLOROthiazide [Hydrodiuril] 25 mg PO DAILY 07/30/17 07/30/20 Metoprolol Tartrate [Lopressor] 25 mg PO BID 04/28/18 07/30/20 Ascorbic Acid [Vitamin C] 1,000 mg PO DAILY 07/30/20 07/30/20 [place] 1 tab PO DAILY 07/30/20 07/30/20 DULoxetine HCL [Cymbalta] 20 mg PO HS 07/30/20 07/30/20 Zinc 50 mg PO DAILY 07/30/20 07/30/20 Allergies Allergy/AdvReac Type Severity Reaction Status Date / Time morphine Allergy Rash/Hives Verified 07/30/20 09:04 Penicillins Allergy Rash/Hives Verified 07/30/20 09:04 azathioprine [From Imuran] AdvReac Increase Verified 07/30/20 09:04 Liver Enzymes codeine AdvReac Nausea & Verified 07/30/20 09:04 Vomiting Influenza Virus Vaccines AdvReac Rash/Hives Verified 07/30/20 09:04 pneumococcal vaccine AdvReac Unknown Verified 07/30/20 09:04 Review of Systems ROS Statement: Those systems with pertinent positive or pertinent negative responses have been documented in the HPI. ROS Other: All systems not noted in ROS Statement are negative. Past Medical History Past Medical History: COPD, GERD/Reflux, Hyperlipidemia, Osteoarthritis (OA) Additional Past Medical History / Comment(s): DYSPHAGIA WITH PAIN. , LUPUS, SJOGREN'S, raynaulds,FREQUENT DIARRHEA, bronchitis, History of Any Multi-Drug Resistant Organisms: None Reported Past Surgical History: Appendectomy, Section, Cholecystectomy, Hysterectomy, Orthopedic Surgery, Tubal Ligation Additional Past Surgical History / Comment(s): t rotator cuff sx, tanesha fundoplasty, EGD 10/31/15.d&c's, colonoscopy/polyps bening, nasal polyp removed -b enign, nodule on vocal cord. Past Anesthesia/Blood Transfusion Reactions: Postoperative Nausea & Vomiting (PONV) Past Psychological History: No Psychological Hx Reported Smoking Status: Former smoker Past Alcohol Use History: Occasional Past Drug Use History: None Reported - Past Family History Mother Family Medical History: Cancer Father Additional Family Medical History / Comment(s): - hx of parkinsons General Exam Limitations: no limitations Course Vital Signs 07/30/20 07:54 Temperature 99.4 F Pulse Rate 59 L Respiratory 20 Rate Blood Pressure 114/69 O2 Sat by Pulse 93 L Oximetry Medical Decision Making - Lab Data Result diagrams: 07/30/20 08:13 07/30/20 08:13 Lab Results 07/30/20 07/30/20 07/30/20 Range/Units 08:13 08:13 08:13 WBC 6.3 (3.8-10.6) k/uL RBC 5.10 (3.80-5.40) m/uL Hgb 15.4 (11.4-16.0) gm/dL Hct 43.8 (34.0-46.0) % MCV 86.0 (80.0-100.0) fL MCH 30.2 (25.0-35.0) pg MCHC 35.1 (31.0-37.0) g/dL RDW 12.4 (11.5-15.5) % Plt Count 114 L (150-450) k/uL MPV 8.7 Neutrophils % 73 % Lymphocytes % 18 % Monocytes % 7 % Eosinophils % 1 % Basophils % 1 % Neutrophils # 4.6 (1.3-7.7) k/uL Lymphocytes # 1.1 (1.0-4.8) k/uL Monocytes # 0.5 (0-1.0) k/uL Eosinophils # 0.0 (0-0.7) k/uL Basophils # 0.1 (0-0.2) k/uL Sodium 132 L (137-145) mmol/L Potassium 3.8 (3.5-5.1) mmol/L Chloride 94 L (98-107) mmol/L Carbon Dioxide 27 (22-30) mmol/L Anion Gap 11 mmol/L BUN 15 (7-17) mg/dL Creatinine 0.63 (0.52-1.04) mg/dL Est GFR (CKD-EPI)AfAm >90 (>60 ml/min/1.73 sqM) Est GFR (CKD-EPI)NonAf >90 (>60 ml/min/1.73 sqM) Glucose 131 H (74-99) mg/dL Calcium 9.0 (8.4-10.2) mg/dL Coronavirus (PCR) Detected A (Not Detectd) Disposition Clinical Impression: COVID-19 Disposition: HOME SELF-CARE Condition: Fair Instructions (If sedation given, give patient instructions): Coronavirus Disease 2019 (COVID-19) Additional Instructions: Today you were evaluated for symptoms consistent with upper respiratory infection. Today you tested positive for Covid 19. Your are stable for discharge, however it is instructed to to seek immediate medical attention especially if you develop worsening symptoms especially respiratory distress. If possible, try to obtain a pulse oximeter and monitor your oxygen at home. In the meantime please remain in quarantine for 14 days. For any other questions please contact Margaret for here in emergency department or [facility] at [phone] Is patient prescribed a controlled substance at d/c from ED?: No Referrals: Basil Agarwal DO [Primary Care Provider] - 1-2 days Time of Disposition: 09:41
[2020-07-30 08:31] LABS: Basophils # (A) 0.1 k/uL (0-0.2); Basophils % (A) 1 %; Eosinophils % (A) 1 %; HCT 43.8 % (34.0-46.0); HGB 15.4 gm/dL (11.4-16.0); Lymphocytes # (A) 1.1 k/uL (1.0-4.8); Lymphocytes % (A) 18 %; MCH 30.2 pg (25.0-35.0); MCHC 35.1 g/dL (31.0-37.0); Mean Platelet Volume 8.7; Monocytes # (A) 0.5 k/uL (0-1.0); Monocytes % (A) 7 %; Neutrophils # (A) 4.6 k/uL (1.3-7.7); Neutrophils % (A) 73 %; Platelet Count 114 k/uL (150-450); RDW 12.4 % (11.5-15.5); WBC 6.3 k/uL (3.8-10.6)
[2020-07-30 08:40] LABS: African American GFR (CKD) >90 (>60 ml/min/1.73 sqM); Anion Gap 11 mmol/L; Blood Urea Nitrogen 15 mg/dL (7-17); Carbon Dioxide 27 mmol/L (22-30); Chloride 94 mmol/L (98-107); Glucose 131 mg/dL (74-99); Non-African American GFR(CKD) >90 (>60 ml/min/1.73 sqM); Potassium 3.8 mmol/L (3.5-5.1); Sodium 132 mmol/L (137-145)
--- NOTE | 2020-07-30 09:02 | XR ---
EXAMINATION TYPE: XR chest 1V portable DATE OF EXAM: 07/30/2020 COMPARISON: 04/28/2018 HISTORY: Covid symptoms. TECHNIQUE: Single frontal view of the chest is obtained. FINDINGS: There is no focal air space opacity, pleural effusion, or pneumothorax seen. The cardiac silhouette size is within normal limits. The osseous structures are intact. IMPRESSION: No acute cardiopulmonary abnormality.
[2020-07-30] MEDS ORDERED: BAMLANIVIMAB (EUA) 700 MG, ETESEVIMAB (EUA) 1,400 MG in SODIUM CHLORIDE 0.9% 50 ML IVPB ONE (10:00)
[2020-07-30 10:52] VITALS: PULSE 81
[2020-07-30] MEDS ORDERED: ACETAMINOPHEN TAB 325 MG TAB PO STA (10:56)
[2020-07-30 13:00] VITALS: BP 132/85; TEMP 99.8
== END 2020-07-30 13:00 | disposition home or self-care (01) ==
LOC: EC 07:53
DX: U07.1 COVID-19 (principal); E87.1 Hypo-osmolality and hyponatremia; E78.5 Hyperlipidemia, unspecified; M19.90 Unspecified osteoarthritis, unspecified site; Z79.899 Other long term (current) drug therapy; Z87.891 Personal history of nicotine dependence; Z88.5 Allergy status to narcotic agent; Z88.7 Allergy status to serum and vaccine; Z88.0 Allergy status to penicillin; Z88.8 Allergy status to other drugs, medicaments and biological substances
CPT/HCPCS: 99285; 36415; 93005; 80048; 85025; 87635; 71045; Q0245

== ENCOUNTER 2020-12-15 05:41 | Day surgery (SDC) | payer OTHER ==
[2020-12-12 09:58] VITALS: BMI 33.6
[2020-12-15] MEDS ORDERED: MIDAZOLAM 2 MG/2 ML VIAL IV PRN (05:46)
[2020-12-15] MEDS ORDERED: ONDANSETRON 4 MG/2 ML VIAL IVP ONE (05:46)
[2020-12-15] MEDS ORDERED: LIDOCAINE 1% (10MG/ML) FOR IV START INTRADERMA PRN (05:46)
[2020-12-15] MEDS ORDERED: DEXAMETHASONE SOD PHOSPHATE 4 MG/ML 1 ML VIAL IV ONE (05:46)
[2020-12-15] MEDS: LACTATED RINGERS 1,000 ML IV SCH ×2 (06:49→07:31)
[2020-12-15] MEDS ORDERED: MIDAZOLAM 2 MG/2 ML VIAL IVP ONE (07:11)
[2020-12-15] MEDS ORDERED: fentaNYL (PF) 50 MCG/ML 2 ML AMP IVP ONE (07:11)
[2020-12-15] MEDS ORDERED: PROPOFOL 10 MG/ML 20 ML VIAL IV ONE (07:33)
[2020-12-15] MEDS ORDERED: GLYCOPYRROLATE 0.2 MG/ML 2 ML VIAL ONE (07:33)
[2020-12-15] MEDS ORDERED: fentaNYL (PF) 50 MCG/ML 2 ML AMP ONE (07:33)
[2020-12-15] MEDS ORDERED: NEOSTIGMINE 1 MG/ML 10 ML VIAL ONE (07:33)
[2020-12-15] MEDS ORDERED: SODIUM CHLORIDE 0.9% (PF) 10 ML VIAL ONE (07:33)
[2020-12-15] MEDS ORDERED: ROCURONIUM 10 MG/ML (5 ML VIAL) IV ONE (07:33)
[2020-12-15] MEDS ORDERED: SUCCINYLCHOLINE CHLORIDE 100 MG/5 ML SYR IV ONE (07:33)
[2020-12-15] MEDS ORDERED: LIDOCAINE 1% INJ 10MG/ML (20 ML MDV) ONE (07:33)
[2020-12-15] MEDS ORDERED: ROPIVACAINE 5 MG/ML 30 ML VIAL ONE (07:33)
--- NOTE | 2020-12-15 09:20 | P.OP ---
Date of Procedure: 12/15/20 Preoperative Diagnosis: Left Achilles tendinosis Procedure(s) Performed: 1. Secondary repair of left Achilles tendon 2. Gastroc recession left Anesthesia: PIOTR Surgeon: Antonio Herr Estimated Blood Loss (ml): 2 Pathology: other (Left Achilles tendon) Condition: stable Disposition: PACU Indications for Procedure: Thickened painful Achilles tendon and the watershed area. Nonresponsive conservative treatment Description of Procedure: Prior to the patient being brought to the operating room, anesthesia administered a nerve block on the left lower extremity utilizing ultrasonic guidance and having the patient under mild sedation. She was then brought into the operative room. Timeout was taken to confirm correct patient and identifiers, correct procedure, and correct site of surgery. Once staff in the room were in agreement with the timeout, anesthesia induced the patient and placed him under general anesthesia. Then the patient was placed on the operating room table in the own position. Once positioning was satisfactory a well-padded tourniquet was placed on the left thigh. Then the left leg was prepped and draped in the usual manner. The leg was exsanguinated, the knee slightly flexed and the tourniquet inflated to 250 mmHg. Attention was first directed over the posterior calf area where a midline incision was made 3 cm distal to the gastroc muscle belly. The incision was deepened down to the saphenous tissue careful to identify, avoid, and retract any neurovascular structures and cauterize any bleeding vessels. Blunt dissection was then carried down to the deep fascia. Small incision was made to the deep fascia and blunt instrumentation inserted deep to the fascia to protect the underlying neurovascular structures. And then the deep fascia was opened. Finger dissection was used to separate the aponeurosis from the overlying deep fascia. Then a transverse incision was made through the aponeurosis but protecting underlying muscle belly from medial to lateral until a full release was obtained. The ankle was dorsiflexed and a 1.5 cm gap was created and the aponeurosis, indicating a complete release. The wound is thoroughly irrigated. The subcutaneous closure was treated with 4-0 Monocryl. Skin closure done with 30 Stratafix in a running subcuticular manner. Then attention was directed over the Achilles tendon and the watershed area. An incision was made medial to the Achilles tendon. The incision was deepened down to the saphenous layer careful to identify, avoid, and retract any neurovascular structures and cauterize any bleeding vessels. Blunt dissection was then carried down to the peritenon and then the saphenous tissue was from the peritenon medially and laterally. A small incision was made to the peritenon which was then very carefully dissected off of the tendon retracted medially and laterally. 2 semi-elliptical full-thickness converging incisions were made through the mid body of the Achilles tendon. The interposing piece of tissue was removed and will be sent to pathology for evaluation. The rest of the tendon that was remaining was inspected and any abnormal tendon was sharply dissected. Once the debridement was completed the wound is thoroughly irrigated with saline. Utilizing Arthrex suture tape the medial lateral sides of the tendon were sewn in a [id number] anastomosis fashion keep his much suture as possible between the segments of the tendon. Once that was completed 4-0 Monocryl was used to close the peritenon over the repair site. Subcu closure of the skin was done with 4-0 Monocryl and skin closure done with 30 Stratafix in a running subcuticular manner. Dermal glue was applied over both incisions and over the skin surrounding the incisions. Once dried Steri-Strips are placed across incision. An Arthrex jumpstart dressing was placed over both incisions, and then a dry bulky dressings applied to the left leg, ankle, and foot. Tourniquet was released and capillary refill return to all digits on the left foot. The patient was then placed in a well-padded, well molded posterior mold/sugar tong plaster splint. The ankle was held in neutral position until dried. The patient is a rolled onto the transfer table where anesthesia was reversed and she was not dramatically extubated. She was taken recovery with vital signs stable.
[2020-12-15 09:21] VITALS: TEMP 97.3
[2020-12-15] MEDS: HYDROmorphone 0.5 MG/0.5 ML SYRINGE IVP PRN ×2 (09:25→09:39)
[2020-12-15] MEDS ORDERED: LACTATED RINGERS 1,000 ML IV ONE ×2 (09:28)
[2020-12-15] MEDS ORDERED: diphenhydrAMINE 50 MG/ML 1 ML VIAL ONE (09:30)
[2020-12-15] MEDS ORDERED: diphenhydrAMINE 50 MG/ML 1 ML VIAL IVP ONE (09:33)
[2020-12-15] MEDS ORDERED: HYDROcodone/APAP 5-325MG 1 EACH TAB ONE (10:55)
[2020-12-15] MEDS ORDERED: HYDROcodone/APAP 5-325MG 1 EACH TAB PO ONE (10:57)
[2020-12-15 11:51] VITALS: BP 125/81
--- NOTE | 2020-12-15 11:55 | P.ANPRN ---
Procedure Note - Anesthesia - Nerve Block Performed Left Adductor Canal Time Out Performed: Yes (07:10) Date of Procedure: 12/15/20 Procedure Start Time: Procedure Stop Time: Location of Patient: PreOp Indication: Acute Post-Operative Pain, Requested by Surgeon (Dr Herr) Sedation Type: Sedate with meaningful contact maintained Preparation: Sterile Prep Position: Supine Catheter: None Needle Types: Pajunk Needle Gauge: 21 Ultrasound used to visualize needle placement: Yes Ultrasound used to observe medication spread: Yes Injectate: 0.5% Ropivacaine (see comment for volume) (15cc + 5 cc PFNormal saline) Blood Aspirated: No Pain Paresthesia on Injection Noted: No Resistance on Injection: Normal Image Stored and Saved: Yes Events: Uneventful and Well Tolerated
--- NOTE | 2020-12-15 11:57 | P.ANPRN ---
Procedure Note - Anesthesia - Nerve Block Performed Left Popliteal Time Out Performed: Yes Date of Procedure: 12/15/20 Procedure Start Time: : Procedure Stop Time: : Location of Patient: PreOp Indication: Acute Post-Operative Pain, Requested by Surgeon (Dr Herr) Sedation Type: Sedate with meaningful contact maintained Preparation: Sterile Prep Position: Right Lateral Catheter: None Needle Types: Pajunk Needle Gauge: 21 Ultrasound used to visualize needle placement: Yes Ultrasound used to observe medication spread: Yes Injectate: 0.5% Ropivacaine (see comment for volume) (15cc + 5cc PFNormal saline) Blood Aspirated: No Pain Paresthesia on Injection Noted: No Resistance on Injection: Normal Image Stored and Saved: Yes Events: Uneventful and Well Tolerated
[2020-12-15 12:30] VITALS: PULSE 60; RESP 14
== END 2020-12-15 12:32 | disposition home or self-care (01) ==
LOC: OR 05:41
PROVIDERS: ATTEND Podiatrist
DX: M76.62 Achilles tendinitis, left leg (principal); M19.90 Unspecified osteoarthritis, unspecified site; M06.9 Rheumatoid arthritis, unspecified; Z88.0 Allergy status to penicillin; Z87.891 Personal history of nicotine dependence; E11.9 Type 2 diabetes mellitus without complications; I10 Essential (primary) hypertension; G89.18 Other acute postprocedural pain; M32.9 Systemic lupus erythematosus, unspecified
CPT/HCPCS: 27654; 27687; 64447; 64445; 76942; 88304; J2250; J1200; J1100; J2710; J0690; J2405; J2001; J3010; J2795; J0330; J2704; J1170

== ENCOUNTER → 2021-02-21 | Outpatient (CLI) | payer OTHER ==
--- NOTE | 2021-02-21 16:07 | BD ---
EXAMINATION TYPE: Axial Bone Density DATE OF EXAM: 02/21/2021 COMPARISON: NONE CLINICAL HISTORY: Height: 63 Weight: 195.3 FRAX RISK QUESTIONS: Alcohol (3 or more units per day): no Family History (Parent hip fracture): no Glucocorticoids (More than 3mos): (Ex: prednisone, prednisolone, methylprednisolone, dexamethasone, and hydrocortisone). History of Fracture in Adulthood: yes Secondary Osteoporosis: 1. Type 1 Diabetes: no 2. Hyperthyroidism: no 3. Menopause before 45: yes 4. Malnutrition: no 5. Chronic liver disease: no Rheumatoid Arthritis: yes Current Tobacco Use: no RISK FACTORS HISTORY OF: Surgery to Spine/Hip(right/left)/Wrist (right/left): no Family History of Osteoporosis: yes Active: yes Diet low in dairy products/other sources of calcium: yes Postmenopausal woman: yes Lost more than 2 inches in height since high school: no Medications: celebrex, Plaquenil, Metroprolol, hydrothiazide, vitamins, leflunomide Additional History: EXAM MEASUREMENTS: Bone mineral densitometry was performed using the [employer] System. Bone mineral density as measured about the Lumbar spine is: ----- L1-L4(G/cm2): 0.962 T Score Values are as follows: ----- L2: -2.8 ----- L3: -1.7 ----- L4: -1.2 ----- L1-L4: -1.8 Bone mineral density : baseline Bone mineral density about the R hip (g/cm2): 0.791 Bone mineral density about the L hip (g/cm2): 0.730 T Score values are as follows: -----R Neck: -1.8 -----L Neck: -2.2 -----R Total: -1.4 -----L Total: -1.6 Bone mineral density : baseline IMPRESSION: Osteoporosis (T Score less than -2.5). There is increased fracture risk and therapy is usually indicated based on age. Re-Screen 1-2 years. NOTE: T-SCORE=SD OF THE YOUNG ADULT MEAN.
== END | disposition home or self-care (01) ==
LOC: RADBDWWP 12:34
PROVIDERS: ATTEND Internal Medicine Rheumatology
DX: M81.0 Age-related osteoporosis without current pathological fracture (principal); Z78.0 Asymptomatic menopausal state
CPT/HCPCS: 77080

== ENCOUNTER → 2022-02-25 | Outpatient (CLI) | payer OTHER ==
--- NOTE | 2022-02-25 10:52 | US ---
EXAMINATION TYPE: US venous doppler duplex LE DATE OF EXAM: 02/25/2022 10:44 AM COMPARISON: NONE CLINICAL HISTORY: 66-year-old female I80.9 PHLEBITIS AND THROMBOPHLEBITIS OF UNSPECIFIED. SIDE PERFORMED: Left TECHNIQUE: The lower extremity deep venous system is examined utilizing real time linear array sonog maycol with graded compression, doppler sonography and color-flow sonography. FINDINGS: VESSELS IMAGED: Common Femoral Vein Deep Femoral Vein Greater Saphenous Vein * Femoral Vein Popliteal Vein Small Saphenous Vein * Proximal Calf Veins (* superficial vessels) Left Leg: Negative for DVT [employer] Clerk notes: Fluid left pop fossa measures 4.1 x 1.1 x 2.2 cm. IMPRESSION: 1. No evidence for DVT within the left lower extremity imaged from the groin to the upper calf. 2. Small to moderate-sized Love's cyst cyst measuring 4.1 x 2.2 cm.
== END | disposition home or self-care (01) ==
LOC: RADUSWWP 10:25
PROVIDERS: ATTEND Orthopaedic Surgery
DX: M71.22 Synovial cyst of popliteal space [Baker], left knee (principal)

== ENCOUNTER → 2023-03-06 | Outpatient (CLI) | payer OTHER, MEDICARE ==
--- NOTE | 2023-03-06 09:14 | BD ---
EXAMINATION TYPE: Axial Bone Density DATE OF EXAM: 03/06/2023 CLINICAL HISTORY: 67 years old Female. ICD-10 CODE: M81.0 AGE-RELATED OSTEOPOROSIS W/O CURRENT PATHO LO Height: 61.5in Weight: 191lb FRAX RISK QUESTIONS: History of Fracture in Adulthood: yes Secondary Osteoporosis: 3. Menopause before 45: yes Rheumatoid Arthritis: yes RISK FACTORS HISTORY OF: Family History of Osteoporosis: yes Active: yes Postmenopausal woman: yes Take estrogen and/or progesterone medications: HRT after hysterectomy, none current How lon years Poor Health: fair MEDICATIONS: Osteoporosis Medications: Which medication: Boniva none current How Lon years Additional Medications: bp meds, cholesterol med, rheumatoid meds Additional History: lupus, rib fx's, shoulder fx, tracy foot fx's EXAM MEASUREMENTS: Bone mineral densitometry was performed using the [employer] System. Bone mineral density as measured about the Lumbar spine is: ----- L1-L4(G/cm2): 0.960 T Score Values are as follows: ----- L1: -2.1 ----- L2: -2.4 ----- L3: -1.6 ----- L4: -1.6 ----- L1-L4: -1.8 Z Score Values are as follows: ----- L1: -1.3 ----- L2: -1.5 ----- L3: -0.7 ----- L4: -0.7 ----- L1-L4: -1.0 Bone mineral density has: Decreased -0.2% since study of: 02-21-21 Bone mineral density about the R hip (g/cm2): 0.812 Bone mineral density about the L hip (g/cm2): 0.789 T Score values are as follows: -----R Neck: -1.9 -----L Neck: -2.4 -----R Total: -1.6 -----L Total: -1.7 Z Score values are as follows: -----R Neck: -0.9 -----L Neck: -1.4 -----R Total: -0.9 -----L Total: -1.0 Bone mineral density has: Decreased -2.2% since study of: 02-21-21 FRAX%s: The graph provided illustrates a 23.9% chance for a major osteoporotic fx and a 5% chance for the hips probability for fx in 10 years time. IMPRESSION: Osteopenia (T Score between -2.5 and -1). There is slightly increased risk of fracture and the patient may be considered for treatment. Re-Screen 2-5 years. NOTE: T-SCORE=SD OF THE YOUNG ADULT MEAN.
== END | disposition home or self-care (01) ==
LOC: RADBDWWP 07:56
PROVIDERS: ATTEND Internal Medicine Rheumatology
DX: M81.0 Age-related osteoporosis without current pathological fracture (principal); M85.89 Other specified disorders of bone density and structure, multiple sites; Z78.0 Asymptomatic menopausal state
CPT/HCPCS: 77080

== ENCOUNTER → 2023-06-20 | Outpatient (CLI) | payer MEDICARE, OTHER ==
--- NOTE | 2023-06-20 14:14 | US ---
EXAMINATION TYPE: US arterial LE single level DATE OF EXAM: 06/20/2023 1:21 PM CLINICAL INDICATION: Female, 67 years old with history of M79.661 PAIN RIGHT LEG M79.662 PAIN IN LEFT LEG; History of: Smoker: no Hypertension: Yes Diabetic: No Hyperlipidemia: Yes TIA/CVA: No Previous Vascular Surgery: Left lower extremity vein stripping CAD: ? ME: No Vascular Ulcers: No Claudication: No Gangrene: No Doppler Waveforms: Right: Biphasic Left: Biphasic Pulse Volume Recording: NA Pressure Gradients: NA Right Brachial Pressure: 172 Left Brachial Pressure: 170 Ankle-Brachial Indices: Right: 1.02 Left: 0.94 Toe Brachial Indices: Right: 0.98 Left: 0.91 IMPRESSION: Normal bilateral MISSY.
== END | disposition home or self-care (01) ==
LOC: RADUSWWP 13:19
PROVIDERS: ATTEND Family Medicine
DX: M79.661 Pain in right lower leg (principal); M79.662 Pain in left lower leg
CPT/HCPCS: 93922

== ENCOUNTER → 2023-10-08 | Outpatient (CLI) | payer MEDICARE, OTHER ==
--- NOTE | 2023-10-09 08:47 | MM ---
Reason for Exam: Screening (asymptomatic). Last mammogram was performed 1 year(s) and 10 month(s) ago. Patient History: Menarche at age 9. First Full-Term at age 22. Hysterectomy at age 27. Postmenopausal. Patient used Estrogen for 8 years. Patient used Progesterone for 8 years. Hormonal Contraceptives, starting at age 10 for 16 years. Paternal aunt had breast cancer. Maternal aunt had breast cancer. Risk Values: Bianka 5 year model risk: 1.6%. NCI Lifetime model risk: 6.2%. Prior Study Comparison: 02/16/2010 Bilateral Diagnostic Mammogram, [facility]. 08/28/2016 Bilateral Screening Mammogram, [facility]. 12/14/2021 Bilateral MG 3D screening mammo w/cad, [facility]. Tissue Density: The breasts are heterogeneously dense, which may obscure small masses. Findings: Analyzed By CAD. There is no suspicious group of microcalcifications or new suspicious mass in either breast. Stable lymph node in the left axilla. Benign appearing calcifications. Overall Assessment: Benign, BI-RAD 2 Management: Screening Mammogram of both breasts in 1 year. . Patient should continue monthly self-breast exams. A clinical breast exam by your physician is recommended on an annual basis. This exam should not preclude additional follow-up of suspicious palpable abnormalities. Note on Bianka scores and lifetime risk: 1. A Bianka score greater than 3% is considered moderate risk. If this is the case, consider specialist referral to assess eligibility for a risk reducing agent. 2. If overall lifetime risk for the development of breast cancer is 20% or higher, the patient may qualify for future screening with alternating mammogram and breast MRI. Electronically signed and approved by: Wale Moss M.D. Radiologis
== END | disposition home or self-care (01) ==
LOC: RADMAMWWP 08:56
PROVIDERS: ATTEND Family Medicine
DX: Z12.31 Encounter for screening mammogram for malignant neoplasm of breast (principal); Z80.3 Family history of malignant neoplasm of breast; Z78.0 Asymptomatic menopausal state
CPT/HCPCS: 77063; 77067

== ENCOUNTER → 2024-04-14 | Outpatient (CLI) | payer MEDICARE, OTHER ==
--- NOTE | 2024-04-14 12:22 | US ---
EXAMINATION TYPE: US kidneys/renal and bladder DATE OF EXAM: 04/14/2024 COMPARISON: 05/12/18 CLINICAL INDICATION: Female, 68 years old with history of M54.50 LOW BACK PAIN, UNSPECIFIED; frequent urination TECHNIQUE: Grayscale imaging of the bilateral kidneys and urinary bladder: FINDINGS: EXAM MEASUREMENTS: Right Kidney: 9.4 x 5.3 x 4.9 cm Left Kidney: 11.0 x 5.3 x 5.9 cm Right Kidney: No hydronephrosis or masses seen, inferior pole limited due to bowel gas Left Kidney: No hydronephrosis or masses seen Bladder: wnl Bilateral Jets seen: yes There is no evidence for hydronephrosis at this point in time. No nephrolithiasis is seen. No brooke s are identified. The urinary bladder is anechoic. IMPRESSION: No evidence for obstructive uropathy or renal calculus. [facility], , 04/14/2024 12:19 PM
== END | disposition home or self-care (01) ==
LOC: RADUSWWP 11:33
PROVIDERS: ATTEND Family Medicine
DX: M54.50 Low back pain, unspecified (principal); R35.0 Frequency of micturition
CPT/HCPCS: 76770

== ENCOUNTER → 2024-07-16 | Outpatient (CLI) | payer MEDICARE, OTHER ==
--- NOTE | 2024-07-16 13:51 | CT ---
EXAMINATION TYPE: CT lower extremity RT wo con CT DLP: 264.6 mGycm, Automated exposure control for dose reduction was used. DATE OF EXAM: 07/16/2024 1:07 PM COMPARISON: None CLINICAL INDICATION:Female, 68 years old with history of M79.671 PAIN IN RIGHT FOOT; PHH, right foot pain TECHNIQUE: Axial images were obtained of the right lower extremity without the use of IV contrast. A dditional coronal and sagittal reformatted images and soft tissue and bone window were obtained for r babitaw. 3-D reconstruction was created on a separate workstation. FINDINGS: There is no evidence of fracture, subluxation, or dislocation. Degenerative changes of the dorsal midfoot with osteophytosis and joint space narrowing. Incidental ossicle along the inferior a spect of the medial malleolus. Plantar calcaneal enthesophyte. No joint effusion is identified. No fo casie muscular atrophy. Mild soft tissue edema of the heel and posterior ankle. No radiopaque foreign b steven identified. IMPRESSION: 1. No acute fracture or dislocation. 2. Degenerative changes of the midfoot. 3. Mild soft tissue edema of the heel and posterior ankle. 4. Plantar calcaneal enthesophyte. [facility], , 07/16/2024 1:49 PM
--- NOTE | 2024-07-16 14:01 | US ---
EXAMINATION TYPE: US extremity nonvasc mass RT DATE OF EXAM: 07/16/2024 COMPARISON: CT(Today) CLINICAL INDICATION: Female, 68 years old with history of M79.671PAIN; TECHNIQUE: FINDINGS: Area of palp at prior surgical site corresponds to irregular bone contour with increased v ascularity, no discretely lesions seen IMPRESSION: No distinct soft tissue lesion seen. Correlate with MRI and CT. [facility], , 07/16/2024 1:59 PM
== END | disposition home or self-care (01) ==
LOC: RADCTMAIN 12:45
PROVIDERS: ATTEND Internal Medicine Rheumatology
DX: M19.071 Primary osteoarthritis, right ankle and foot (principal); R60.0 Localized edema